=== PATIENT | male | born 1960 | race Caucasian/White ===

== ENCOUNTER 2016-07-14 10:54 | Observation (INO) | payer OTHER ==
[2016-07-14] MEDS ORDERED: ACETAMINOPHEN IV (For NPO) 1,000 MG in EMPTY BAG 1 BAG IVPB STA (11:18)
[2016-07-14] MEDS ORDERED: IPRATROPIUM 0.5 MG/2.5 ML NEBU INHALATION STA (11:18)
[2016-07-14] MEDS ORDERED: KETOROLAC 30 MG/ML 1 ML VIAL IVP STA (11:18)
[2016-07-14] MEDS ORDERED: ALBUTEROL NEBULIZED 2.5 MG/3 ML INHALATION STA (11:18)
[2016-07-14] MEDS ORDERED: SODIUM CHLORIDE 0.9% 1,000 ML IV STA ×2 (11:18)
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
[2016-07-14] MEDS ORDERED: ASPIRIN 81 MG CHEW PO STA (12:33)
[2016-07-14] MEDS ORDERED: NITROGLYCERIN SL TABS 0.4 MG TAB SUBLINGUAL PRN (12:33)
[2016-07-14 12:42] LABS: Basophils # (A) 0.1 k/uL (0-0.2); Basophils % (A) 1 %; CH 34.4; CHCM 33.9; Eosinophils # (A) 0.1 k/uL (0-0.7); Eosinophils % (A) 1 %; HCT 44.1 % (39.0-53.0); HDW 2.41; HGB 14.7 gm/dL (13.0-17.5); Luc # (Auto) 0.29; Luc % (Auto) 4; Lymphocytes # (A) 2.2 k/uL (1.0-4.8); Lymphocytes % (A) 29 %; MCH 33.9 pg (25.0-35.0); MCHC 33.3 g/dL (31.0-37.0); MCV 101.8 fL (80.0-100.0); Mean Platelet Volume 7.1; Monocytes # (A) 0.5 k/uL (0-1.0); Monocytes % (A) 7 %; Neutrophils # (A) 4.4 k/uL (1.3-7.7); Neutrophils % (A) 58 %; RBC 4.33 m/uL (4.30-5.90); RDW 12.5 % (11.5-15.5); WBC 7.6 k/uL (3.8-10.6); WBC (Perox) 7.68
[2016-07-14 12:43] LABS: INR 1.1 (<1.1); Partial Thromboplastin Time 25.2 sec (22.0-30.0); Prothrombin Time 10.9 sec (9.0-12.0)
[2016-07-14 12:45] LABS: ALT 104 U/L (21-72); AST 100 U/L (17-59); Alkaline Phosphatase 71 U/L (38-126); Anion Gap 11 mmol/L; Blood Urea Nitrogen 16 mg/dL (9-20); Carbon Dioxide 30 mmol/L (22-30); Chloride 102 mmol/L (98-107); Glucose 96 mg/dL (74-99); Magnesium 1.9 mg/dL (1.6-2.3); Non-African American GFR(MDRD) >60 (>60 ml/min/1.73 sqM); Phosphorous 4.4 mg/dL (2.5-4.5); Potassium 4.4 mmol/L (3.5-5.1); Sodium 143 mmol/L (137-145); Total Bilirubin 0.5 mg/dL (0.2-1.3); Total Protein 7.8 g/dL (6.3-8.2)
[2016-07-14 12:55] LABS: Creatine Kinase 51 U/L (55-170)
--- NOTE | 2016-07-14 12:58 | XR ---
EXAMINATION TYPE: XR chest 2V DATE OF EXAM: 07/14/2016 12:50 PM COMPARISON: 10/25/2015 HISTORY: Shortness of breath FINDINGS: The lungs are clear and there is no pneumothorax, pleural effusion, or focal pneumonia. Hypertrophi c and degenerative change of the spine. Postsurgical changes noted. Chronic rib deformities noted. Co rrelate for COPD. Arthropathy of the shoulders noted. IMPRESSION: 1. No acute process. Correlate for COPD.
[2016-07-14] MEDS: MORPHINE SULFATE 4 MG/ML SYRINGE IV PRN ×3 (13:01→22:31)
[2016-07-14 13:08] LABS: Creatine Kinase MB 1.4 ng/mL (0.0-2.4); Troponin I <0.012 ng/mL (0.000-0.034)
[2016-07-14] MEDS ORDERED: RX INFO: IV CONTRAST WAS GIVEN 1 EACH MISC MISCELLANE PRN (13:12)
[2016-07-14] MEDS ORDERED: HEPARIN SODIUM,PORCINE 5,000 UNIT/ML 1 ML VIAL IV ONE (13:15)
[2016-07-14] MEDS ORDERED: HEPARIN SODIUM,PORCINE/D5W PMX 25,000 UNIT in DEXTROSE/WATER 1 500ML.BAG IV SCH (13:15)
[2016-07-14] MEDS ORDERED: hydrALAZINE HCL 20 MG/ML 1 ML VIAL IVP STA (14:28)
--- NOTE | 2016-07-14 14:38 | CT ---
EXAMINATION TYPE: CT angio chest DATE OF EXAM: 07/14/2016 2:25 PM COMPARISON: 04/24/2016 HISTORY: Right sided chest pain wih shorhness of breath CT DLP: 147.4 mGycm CONTRAST: CT chest with contrast and 3D reconstruction with MIP imaging is performed with IV Contrast, patient injected with 100 mL of Omnipaque 350. Contrast-enhanced CT of the chest was performed through the course of the pulmonary arteries with rk g and mediastinal window settings submitted. 3D reconstruction with MIP imaging was also performed. PULMONARY ARTERIES: The pulmonary arteries and their major tributaries are patent. I do not see nuno dence for sizable filling defect to suggest pulmonary embolic process. LUNGS: Postoperative changes right lung. Emphysematous changes noted bilaterally. The lungs are clear and free of infiltrate. No evidence for atelectasis. No pulmonary nodule or mass is detected. No pleural effusion. MEDIASTINUM: Thoracic aorta is of normal caliber . The heart is not enlarged. No evidence for media stinal mass. No mediastinal lymph nodes greater than 1cm. HILAR STRUCTURES: No evidence for mass. No hilar lymph nodes greater than 1 cm. UPPER ABDOMEN: No significant abnormality is seen. IMPRESSION: 1. No evidence for Pulmonary embolism at this time.
[2016-07-14] MEDS: IPRATROPIUM-ALBUTEROL 3 ML NEB INHALATION SCH ×2 (15:57→20:35)
[2016-07-14 18:57] LABS: Troponin I 0.015 ng/mL (0.000-0.034)
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
[2016-07-14] MEDS ORDERED: IPRATROPIUM-ALBUTEROL 3 ML NEB INHALATION PRN (20:35)
[2016-07-14] MEDS: HEPARIN SODIUM,PORCINE 5,000 UNIT/ML 1 ML VIAL IV PRN (22:28)
[2016-07-15 01:19] LABS: Creatine Kinase 38 U/L (55-170)
[2016-07-15 01:32] LABS: Creatine Kinase MB 1.2 ng/mL (0.0-2.4); Troponin I <0.012 ng/mL (0.000-0.034)
[2016-07-15] MEDS: MORPHINE SULFATE 4 MG/ML SYRINGE IV PRN ×3 (01:43→10:00)
[2016-07-15 04:52] LABS: Basophils # (A) 0.2 k/uL (0-0.2); Basophils % (A) 2 %; CHCM 32.6; Eosinophils # (A) 0.1 k/uL (0-0.7); Eosinophils % (A) 2 %; HCT 40.1 % (39.0-53.0); HDW 2.36; HGB 12.9 gm/dL (13.0-17.5); Luc # (Auto) 0.27; Luc % (Auto) 4; Lymphocytes # (A) 2.5 k/uL (1.0-4.8); Lymphocytes % (A) 39 %; MCH 33.5 pg (25.0-35.0); MCHC 32.1 g/dL (31.0-37.0); MCV 104.5 fL (80.0-100.0); Macrocytosis Slight; Mean Platelet Volume 7.9; Monocytes # (A) 0.7 k/uL (0-1.0); Monocytes % (A) 11 %; Neutrophils # (A) 2.7 k/uL (1.3-7.7); Neutrophils % (A) 42 %; RBC 3.84 m/uL (4.30-5.90); RDW 12.7 % (11.5-15.5); WBC 6.4 k/uL (3.8-10.6); WBC (Perox) 6.16
[2016-07-15 04:56] LABS: Cholesterol 145 mg/dL (<200); HDL Cholesterol 72 mg/dL (40-60); Triglycerides 51 mg/dL (<150)
[2016-07-15] MEDS: HEPARIN SODIUM,PORCINE 5,000 UNIT/ML 1 ML VIAL IV PRN (05:11)
[2016-07-15 08:00] VITALS: RESP 18
[2016-07-15] MEDS ORDERED: ASPIRIN 325 MG TAB PO SCH (09:00)
--- NOTE | 2016-07-15 10:57 | CONS ---
DATE OF CONSULTATION: CHIEF COMPLAINT: Right-sided chest pain. HISTORY OF PRESENT ILLNESS: This is a 55-year-old gentleman with history of cancer of the lung, status post right middle lobectomy currently on adjuvant chemotherapy who presented to the hospital complaining of chest discomfort. He had pain and swelling of the right upper extremity and has had discomfort involving the right side. It is moderate in intensity without clear-cut relieving factor, got worse with deep breathing, not associated with diaphoresis. Had a CT chest that was negative for pulmonary embolism, has had 3 sets of cardiac enzymes that were negative. EKG shows sinus rhythm with nonspecific ST-T wave change, similar to his baseline EKG. I believe patient's chest discomfort is atypical and probably noncardiac in origin. Past medical history is significant for hepatitis C, hypertension, dyslipidemia, osteoarthritis, CA lung. Past surgical history is significant for right middle lobectomy, patient is on chemotherapy, tonsillectomy, hernia repair, adenoidectomy. ALLERGIES: As charted. FAMILY HISTORY: Negative for premature coronary artery disease. Social history is significant for smoking that he quit in 2009. He drinks vodka regularly and is currently at [place]. Social history is significant for marijuana use. REVIEW OF SYSTEMS: HEENT: Unremarkable. CARDIAC: As described above. RESPIRATORY: As described above. GI: Negative. GENITOURINARY: Negative. ALLERGY/IMMUNOLOGY: Negative. SKIN: Negative. MUSCULOSKELETAL: Significant for arthritis. PSYCHOSOCIAL: Negative. ENDOCRINE: Negative. DERM: Negative. CONSTITUTIONAL: Negative. ONCOLOGICAL: Significant for cancer. The rest of the system review is not relevant. On exam, he is comfortable at rest. Vital signs are stable. There is no jugular venous distention. Chest exam reveals diminished air entry at the right base. Heart exam reveals first and second heart sounds. No gallop. No murmur. Abdomen is soft, nontender. Examination of extremities did not reveal any edema. Peripheral pulses are felt. Labs show a hemoglobin of 12.9. Platelet count is 175. LDL is 63. Creatinine is normal at 0.9. Potassium is 4.4. Current medications include trazodone, Catapres, ibuprofen, magnesium and Tylenol. ASSESSMENT: 1. Chest pain. 2. History of cancer of lung. 3. History of EtOH abuse. PLAN: Patient's chest discomfort is atypical and probably noncardiac in origin. He is stable to be discharged home. Please arrange followup with Dr. Santacruz my associate who has seen him in the past. I will obtain a 2-D echo, but he is stable to be discharged.
--- NOTE | 2016-07-15 11:28 | ECHOF ---
Referral Reason:chest pain MEASUREMENTS -------- HEIGHT: 172.7 cm WEIGHT: 59.0 kg BP: 144/83 IVSd: 1.3 cm (0.6 - 1.1) LVIDd: 3.5 cm (3.9 - 5.3) LVPWd: 1.1 cm (0.6 - 1.1) IVSs: 1.7 cm LVIDs: 1.7 cm LVPWs: 2.0 cm MV EXCURSION: 23.254 mm (> 18.000) MV EF SLOPE: 140 mm/s (70 - 150) EPSS: 2.0 cm MV E Nikolai: 0.84 m/s MV DecT: 258 ms MV A Nikolai: 0.77 m/s MV E/A Ratio: 1.09 RAP: 5.00 mmHg RVSP: 9.27 mmHg FINDINGS -------- Sinus rhythm. This was a technically good study. There is mild concentric left ventricular hypertrophy. Overall left ventricular systolic function is normal with, an EF between 55 - 60 %. The right ventricle is normal in size and function. The left atrium is normal in size. The right atrium is normal in size. The aortic valve was not well visualized. The mitral valve leaflets are mildly thickened. There is trace mitral regurgitation. Mild tricuspid regurgitation present. The right ventricular systolic pressure, as measured by Doppler, is 9.27mmHg. Pulmonic valve appears structurally normal. The aortic root size is normal. The pericardium is normal. CONCLUSIONS -------- 1. Sinus rhythm. 2. There is trace mitral regurgitation. 3. Mild tricuspid regurgitation present. 4. The right ventricular systolic pressure, as measured by Doppler, is 9.27mmHg. 5. Pulmonic valve appears structurally normal. 6. The aortic root size is normal. 7. The pericardium is normal. 8. This was a technically good study. 9. There is mild concentric left ventricular hypertrophy. 10. Overall left ventricular systolic function is normal with, an EF between 55 - 60 %. 11. The right ventricle is normal in size and function. 12. The left atrium is normal in size. 13. The right atrium is normal in size. 14. The aortic valve was not well visualized. 15. The mitral valve leaflets are mildly thickened. OPERATIONS INTELLIGENCE: Annamarie Saravia [facility]
[2016-07-15 12:09] VITALS: BP 167/79; PULSE 71; TEMP 98.6
--- NOTE | 2016-07-17 12:37 | P.DS ---
Providers Date of admission: 07/14/16 12:33 Expected date of discharge: 07/15/16 Attending physician: Alvarez Avila Consults: 07/14/16 16:39 Consult Physician Routine Consulting Provider: [facility] Consult Reason/Comments: CP Do you want consulting provider notified?: Yes Primary care physician: Shaun Metzger [facility] Course: This is a 55-year-old male one of Dr. 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 followed by adjuvant chemotherapy in the form of Taxol and carboplatin 1 after which she had suffered from severe pain and swelling of the upper extremity and he has not received any other chemotherapy after that, he has been under the care of hematology oncology, patient also has a history of hepatitis C for which she did receive some treatment for it, patient was recently admitted at [place] for chronic alcohol use and dependence with the intention of staying sober as he started to drink up to fifth a day, patient was sent from [place] because of right-sided chest pain that started while the patient was they're associated with increased shortness breath he patient was seen and evaluated in the emergency department at [facility] had a computed tomography scan of the chest that was negative for pulmonary embolism and the patient was admitted to the hospital for evaluation was placed on heparin drip because of his other comorbidities. Cardiology consultation was obtained prior to his clearance to go back to [place]. Echocardiogram reveals trace mitral regurgitation, mild tricuspid regurgitation , mild concentric left ventricular hypertrophy, EF 55-60%. He has been evaluated by cardiology, Dr. Zeng, and has been cleared for discharge. Discharge diagnoses: 1. Right-sided chest pain. 2. Poorly differentiated large cell lung cancer. Post right middle lobectomy with the adjuvant chemotherapy 1 in the form of carboplatin and Taxol currently in remission. 3. Chronic hepatitis C posttreatment. 4. Chronic alcohol use and dependence. 5. Chronic marijuana use. Observation. Discharge plan: Back to [place] if cleared by cardiology. Impression and plan of care have been directed as dictated by the signing physician. Tess Morales nurse practitioner acting as scribe for signing physician. Cc: Dr. Shaun Metzger Patient Condition at Discharge: Good Plan - Discharge Summary Discharge Medication List Acetaminophen [Tylenol Arthritis] 650 mg PO Q4H PRN 07/14/16 [History] Calcium/Magnesium 2 tab PO TID PRN 07/14/16 [History] Chlorpheniramine Maleate [Chlor-Trimeton] 4 mg PO Q4H PRN 07/14/16 [History] Ibuprofen [Motrin] 600 mg PO Q6HR PRN 07/14/16 [History] cloNIDine HCL [Catapres] 0.1 - 0.3 mg PO Q4H PRN 07/14/16 [History] traZODone HCL 50 - 150 mg PO HS 07/14/16 [History] Follow up Appointment(s)/Referral(s): Shaun Metzger MD [Primary Care Provider] - 1-2 days Dg Santacruz MD [STAFF PHYSICIAN] - 3 Weeks Patient Instructions/Handouts: Chest Pain (GEN) Activity/Diet/Wound Care/Special Instructions: low fat/low salt diet activity as tolerated Discharge Disposition: HOME SELF-CARE
--- NOTE | 2016-09-12 17:41 | CDI ---
Sarahy Segura Would you please provide clarification for your EC diagnosis of COPD exacerbation. I have not been able to find supporting documentation for this diagnosis. Thank you Miguel Rivero/Keily [facility]
--- NOTE | 2016-09-12 17:45 | CDI ---
Saarhy Segura Would you please clarify your EC diagnosis of Acute exacerbation of COPD. I have not been able to find supporting documentation for this diagnosis. Thank you Miguel Rivero/Ke[facility]
--- NOTE | 2016-09-18 13:04 | CDI ---
Dr. Segura, Please clarify the EC diagnosis of acute exacerbation of chronic obstructive pulmonary disease. I have not found documentation to support this diagnosis. Updated Exam Thank you, Valencia Rivero 09-18-16 [facility]
== END 2016-07-15 13:30 | disposition home or self-care (01) ==
LOC: EC 10:54 → 3OBS 12:33
PROVIDERS: ADMIT Internal Medicine; ATTEND Internal Medicine
DX: R07.89 Other chest pain (principal); C34.90 Malignant neoplasm of unspecified part of unspecified bronchus or lung; B18.2 Chronic viral hepatitis C; F10.20 Alcohol dependence, uncomplicated; F12.90 Cannabis use, unspecified, uncomplicated; I10 Essential (primary) hypertension; J44.1 Chronic obstructive pulmonary disease with (acute) exacerbation; Z87.891 Personal history of nicotine dependence; Z90.2 Acquired absence of lung [part of]; Z79.899 Other long term (current) drug therapy; M19.90 Unspecified osteoarthritis, unspecified site
CPT/HCPCS: 96361 ×3; 96376 ×4; 96365 ×2; 96375 ×2; 99291 ×2; 93005 ×2; 96366 ×2; 36415; 94640 ×2; 94644; 93306; 83880; 80061; 80053; 82550 ×2; 82553 ×2; 83735; 84100; 84484 ×2; 85025 ×2; 85610; 85730 ×2; 71020; 71275; G0378 ×2; J2270 ×2; J0360; J1644 ×3; Q9967; J1885; J0131

== ENCOUNTER 2016-11-18 18:36 | Observation (INO) | payer OTHER ==
[2016-11-18] MEDS: NITROGLYCERIN SL TABS 0.4 MG TAB SUBLINGUAL STA ×3 (19:21→19:32)
[2016-11-18 19:30] LABS: Basophils % (A) 1 %; CH 34.7; CHCM 34.7; Eosinophils % (A) 1 %; HDW 2.33; HGB 14.3 gm/dL (13.0-17.5); Luc # (Auto) 0.19; Luc % (Auto) 4; Lymphocytes # (A) 2.1 k/uL (1.0-4.8); Lymphocytes % (A) 46 %; MCHC 33.9 g/dL (31.0-37.0); MCV 100.2 fL (80.0-100.0); Mean Platelet Volume 6.8; Monocytes # (A) 0.2 k/uL (0-1.0); Monocytes % (A) 5 %; Neutrophils # (A) 2.1 k/uL (1.3-7.7); Neutrophils % (A) 44 %; RBC 4.19 m/uL (4.30-5.90); RDW 13.8 % (11.5-15.5); WBC 4.7 k/uL (3.8-10.6); WBC (Perox) 4.46
--- NOTE | 2016-11-18 19:32 | XR ---
EXAMINATION TYPE: XR chest 1V portable DATE OF EXAM: 11/18/2016 COMPARISON: Chest x-ray and CTA chest July 14, 2016. HISTORY: History of lung cancer presents with chest pain. TECHNIQUE: Single AP portable frontal upright view of the chest is obtained. FINDINGS: There are right hilar clips from partial pneumonectomy with right-sided volume loss and ri ght basilar scarring all redemonstrated. Underlying emphysematous change is redemonstrated. No new hayes spicious focal airspace opacity or pneumothorax is seen bilaterally. The cardiac silhouette size is within normal limits. The osseous structures are intact. IMPRESSION: Chronic changes without acute pulmonary process.
[2016-11-18 19:44] LABS: Appearance,Urine Clear (Clear); Bilirubin,Urine Negative (Negative); Glucose,Urine (UA) Negative (Negative); Ketones,Urine Negative (Negative); Leukocyte Esterase,Urine Negative (Negative); Mucus,Urine Rare /hpf; Nitrite,Urine Negative (Negative); PH, Urine 6.5 (5.0-8.0); Particle Count 3735; Protein,Urine 2+ (Negative); RBC,Urine 1 /hpf (0-5); Specific Gravity,Urine 1.018 (1.001-1.035); UA Billing (MACRO vs. MICRO) MICRO
[2016-11-18 19:50] LABS: Prothrombin Time 10.6 sec (9.0-12.0)
[2016-11-18 19:59] LABS: ALT 78 U/L (21-72); AST 173 U/L (17-59); Alkaline Phosphatase 86 U/L (38-126); Amylase 143 U/L (30-110); Anion Gap 15 mmol/L; Blood Urea Nitrogen 13 mg/dL (9-20); Calcium 8.6 mg/dL (8.4-10.2); Carbon Dioxide 30 mmol/L (22-30); Chloride 103 mmol/L (98-107); Glucose 93 mg/dL (74-99); Magnesium 1.7 mg/dL (1.6-2.3); Non-African American GFR(MDRD) >60 (>60 ml/min/1.73 sqM); Potassium 3.8 mmol/L (3.5-5.1); Sodium 148 mmol/L (137-145); Total Bilirubin 1.2 mg/dL (0.2-1.3); Total Protein 8.2 g/dL (6.3-8.2)
[2016-11-18 20:08] LABS: Alcohol 394 mg/dL
[2016-11-18] MEDS ORDERED: RX INFO: IV CONTRAST WAS GIVEN 1 EACH MISC MISCELLANE PRN (21:44)
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
[2016-11-18] MEDS ORDERED: NITROGLYCERIN SL TABS 0.4 MG TAB SUBLINGUAL PRN (22:08)
[2016-11-18] MEDS ORDERED: MORPHINE SULFATE 4 MG/ML SYRINGE IV PRN (22:08)
[2016-11-18] MEDS ORDERED: HEPARIN SODIUM,PORCINE 5,000 UNIT/ML 1 ML VIAL IV ONE (22:08)
[2016-11-18] MEDS ORDERED: THIAMINE 100 MG/ML 2 ML VIAL IM STA (22:13)
[2016-11-18] MEDS ORDERED: LORazepam 2 MG/ML SYRINGE IV PRN ×2 (22:13)
[2016-11-18] MEDS ORDERED: HEPARIN SODIUM,PORCINE/D5W PMX 25,000 UNIT in DEXTROSE/WATER 1 500ML.BAG IV SCH (22:15)
[2016-11-18] MEDS ORDERED: ENOXAPARIN 60 MG/0.6 ML SYRINGE SQ STA (22:17)
--- NOTE | 2016-11-18 22:20 | CT ---
EXAMINATION TYPE: CT chest angio for PE DATE OF EXAM: 11/18/2016 COMPARISON: CTA chest July 14, 2016. HISTORY: History of lung cancer and surgery with chest pain and elevated d-dimer. CT DLP: 596 mGycm. Automated Exposure Control for Dose Reduction was Utilized. CONTRAST: CTA scan of the thorax is performed with IV Contrast, patient injected with 85 mL of Omnipaque 350, p ulmonary embolism protocol. MIP Images are created on CT scanner and reviewed. FINDINGS: LUNGS: Moderate underlying emphysematous change is redemonstrated. Right hilar surgical sutures and c lips with right-sided volume loss is again seen from partial pneumonectomy. There is right basilar li near scarring. There is no suspicious new focal groundglass opacity or consolidation. No concerning n ew parenchymal nodule or mass is present. No pleural effusion or pneumothorax is seen bilaterally. MEDIASTINUM: There is satisfactory enhancement of the pulmonary artery and its branches, there is no CT evidence for pulmonary embolism. There are no greater than 1 cm hilar or mediastinal lymph nodes. No cardiomegaly or pericardial effusion is seen. There is 4 vessel origin from aortic arch which i s normal variant. Coronary artery calcification and left main is present which is noted marker for co ronary artery disease. Mediastinal shift to the right is present. OTHER: Liver is markedly low dense consistent with fatty infiltration. Multilevel spurring in the spi ne is present. IMPRESSION: No CT evidence for pulmonary embolism. Moderate emphysematous change and postsurgical dilia nge right lung without suspicious acute pulmonary process. No significant change from prior CT.
[2016-11-18] MEDS: LORazepam 2 MG/ML SYRINGE IV PRN (23:16)
[2016-11-19 01:45] LABS: Creatine Kinase 654 U/L (55-170)
[2016-11-19] MEDS: THIAMINE 100 MG TAB PO SCH ×2 (01:47→12:03)
[2016-11-19 01:58] LABS: Troponin I <0.012 ng/mL (0.000-0.034)
[2016-11-19 02:00] LABS: Creatine Kinase MB 5.1 ng/mL (0.0-2.4)
[2016-11-19] MEDS: LORazepam 2 MG/ML SYRINGE IV PRN ×2 (03:13→12:06)
[2016-11-19 07:56] VITALS: RESP 16
[2016-11-19 08:19] LABS: Cholesterol 247 mg/dL (<200); Triglycerides 139 mg/dL (<150)
[2016-11-19 08:35] LABS: Creatine Kinase 561 U/L (55-170)
[2016-11-19 08:48] LABS: Troponin I <0.012 ng/mL (0.000-0.034)
[2016-11-19] MEDS ORDERED: ASPIRIN 325 MG TAB PO SCH (09:00)
[2016-11-19] MEDS ORDERED: ENOXAPARIN 60 MG/0.6 ML SYRINGE SQ SCH (09:00)
[2016-11-19 09:02] LABS: HDL Cholesterol 128 mg/dL (40-60)
[2016-11-19] MEDS ORDERED: METOPROLOL TARTRATE 25 MG TAB PO SCH (10:30)
[2016-11-19] MEDS ORDERED: POTASSIUM CHLORIDE ER 20 MEQ TAB.ER PO SCH (10:30)
[2016-11-19 11:59] VITALS: BP 158/89; PULSE 92; TEMP 98
--- NOTE | 2016-11-19 16:43 | CONS ---
DATE OF CONSULTATION: 56-year-old gentleman with lung cancer and right middle lobectomy, chemotherapy and I am not sure of radiation and comes into the hospital with chest pain. He is intoxicated, has alcohol level that is significant apparently. After arrival, he complained of chest discomfort. The quality of pain is atypical. There is tenderness on the chest wall. Troponins are normal. D-dimer was elevated. CT angiogram negative for pulmonary embolism. Resting comfortably, still intoxicated. Gives history in bits and pieces. Quality of pain is atypical. PAST MEDICAL HISTORY: 1. History of lung cancer, status post right middle lobectomy followed by some chemotherapy. 2. He is also has hypertension. 3. Liver disease. 4. History of alcoholism, chronic and acute intoxication at this time. Medications at home include: 1. Acetaminophen. 2. Ibuprofen. 3. Catapres 0.1 mg b.i.d. ALLERGIES: None. On examination, blood pressure is 140/80, pulse rate is 90 per minute. HEENT: Unremarkable. Fundus was not examined by me. Neck is supple. No JVD. I do not hear a carotid bruit. Heart exam reveals S1 and S2 without significant rub, murmur or gallop. Lungs reveal diminished air entry. ABDOMEN: Soft. Lower extremities reveal diminished pulses. Central nervous system is normal. Laboratory data revealed unremarkable troponins. IMPRESSION: 1. Atypical musculoskeletal chest pain. 2. History of lung carcinoma, status post right middle lobectomy and chemotherapy. 3. Acute alcohol intoxication. 4. History of chronic alcoholism. 5. History of previous echo which revealed normal systolic function. RECOMMENDATIONS: I am recommending that we supplement potassium, add a beta madi, switch him from Lovenox to subcu heparin 5000 q.12 hours, increase activity, and discharge when sober. Follow up with Dr. Santacruz who has seen him in the past.
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
[2016-11-20] MEDS ORDERED: HEPARIN SODIUM,PORCINE 5,000 UNIT/ML 1 ML VIAL SQ SCH (09:00)
== END 2016-11-19 14:58 | disposition home or self-care (01) ==
LOC: EC 18:36 → 3OBS 22:30
PROVIDERS: ADMIT Internal Medicine; ATTEND Internal Medicine
DX: R07.89 Other chest pain (principal); J44.9 Chronic obstructive pulmonary disease, unspecified; Z87.891 Personal history of nicotine dependence; F10.229 Alcohol dependence with intoxication, unspecified; Y90.8 Blood alcohol level of 240 mg/100 ml or more; I25.10 Atherosclerotic heart disease of native coronary artery without angina pectoris; Z85.118 Personal history of other malignant neoplasm of bronchus and lung; Z79.899 Other long term (current) drug therapy; Z92.21 Personal history of antineoplastic chemotherapy; R79.89 Other specified abnormal findings of blood chemistry; H54.42 Blindness, left eye, normal vision right eye
CPT/HCPCS: 96372 ×4; 93005 ×2; 96374; 96375; 96376; 99285; 36415; 85379; 80061; 80053; 82150; 82550; 82553; 83690; 83735; 84484 ×2; 85025; 85610; 85730; 81001; 80320; 71010; 71275; G0378 ×2; J2060 ×2; J2270; J3411; Q9967; J1650 ×2

== ENCOUNTER 2016-11-19 23:17 | Observation (INO) | payer OTHER ==
[2016-11-19] MEDS ORDERED: SODIUM CHLORIDE 0.9% 1,000 ML with MVI, ADULT NO.4 WITH VIT K 10 ML, THIAMINE 100 MG, F... IV ONE ×4 (23:53)
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
[2016-11-20 00:24] LABS: Basophils % (A) 1 %; CH 34.8; CHCM 33.9; Eosinophils # (A) 0.1 k/uL (0-0.7); Eosinophils % (A) 1 %; HCT 41.7 % (39.0-53.0); HGB 13.6 gm/dL (13.0-17.5); Luc % (Auto) 2; Lymphocytes # (A) 1.8 k/uL (1.0-4.8); Lymphocytes % (A) 34 %; MCH 33.7 pg (25.0-35.0); MCHC 32.6 g/dL (31.0-37.0); MCV 103.2 fL (80.0-100.0); Macrocytosis Slight; Mean Platelet Volume 7.4; Monocytes # (A) 0.3 k/uL (0-1.0); Monocytes % (A) 5 %; Neutrophils % (A) 57 %; RBC 4.04 m/uL (4.30-5.90); RDW 13.6 % (11.5-15.5); WBC 5.3 k/uL (3.8-10.6); WBC (Perox) 4.93
[2016-11-20 00:36] LABS: Prothrombin Time 10.6 sec (9.0-12.0)
[2016-11-20 00:38] LABS: ALT 77 U/L (21-72); AST 131 U/L (17-59); Alkaline Phosphatase 82 U/L (38-126); Amylase 107 U/L (30-110); Anion Gap 18 mmol/L; Blood Urea Nitrogen 13 mg/dL (9-20); Calcium 9.5 mg/dL (8.4-10.2); Carbon Dioxide 25 mmol/L (22-30); Chloride 102 mmol/L (98-107); Glucose 144 mg/dL (74-99); Non-African American GFR(MDRD) >60 (>60 ml/min/1.73 sqM); Potassium 3.3 mmol/L (3.5-5.1); Sodium 145 mmol/L (137-145); Total Bilirubin 1.3 mg/dL (0.2-1.3)
[2016-11-20] MEDS ORDERED: LIDOCAINE VISCOUS 2% 15 ML CUP TOPICAL ONE (01:03)
--- NOTE | 2016-11-20 01:04 | CT ---
EXAM: CT Head Without Intravenous Contrast CLINICAL HISTORY: Reason: alcoholic, fall TECHNIQUE: Axial computed tomography images of the head/brain without intravenous contrast. CTDI is 57.4 mGy and DLP is 1167.7 mGy-cm. This CT exam was performed using one or more of the following dose reduction techniques: automated exposure control, adjustment of the mA and/or kV according to patient size, and/or use of iterative reconstruction technique. Coronal and sagittal reformatted images were created and reviewed. COMPARISON: No relevant prior studies available. FINDINGS: Brain: Mild chronic small vessel ischemic changes. Incidental veto simeon space seen within the right innominate region. Global volume loss. No hemorrhage. No significant white matter disease. No edema. Ventricles: Unremarkable. No ventriculomegaly. Bones/joints: Unremarkable. No acute fracture. Soft tissues: Unremarkable. Sinuses: Unremarkable as visualized. No acute sinusitis. Mastoid air cells: Unremarkable as visualized. No mastoid effusion. IMPRESSION: No acute intracranial abnormality. EXAM: CT Cervical Spine Without Intravenous Contrast CLINICAL HISTORY: Reason: alcoholic, fall TECHNIQUE: Axial computed tomography images of the cervical spine without intravenous contrast. CTDI is 15.1 mGy and DLP is 364.1 mGy-cm. This CT exam was performed using one or more of the following dose reduction techniques: automated exposure control, adjustment of the mA and/or kV according to patient size, and/or use of iterative reconstruction technique. Coronal and sagittal reformatted images were created and reviewed. COMPARISON: No relevant prior studies available. FINDINGS: Vertebrae: Unremarkable. No acute fracture. Discs/spinal canal/neural foramina: Prominent disc osteophyte complexes seen at C3/C4, C4/C5 and C6/C7. Central stenosis seen at C6/C7. Bilateral left worse than right neuroforaminal stenosis at C2/23. Left neuroforaminal stenosis at C3/C4. Bilateral neuroforaminal stenosis at C4/C5. Bilateral neuroforaminal stenosis C5/C6. Bilateral neuroforaminal stenosis at C6/C7. Right neuroforaminal stenosis at C7/T1. The extensive facet disease is seen predominantly on the left throughout the cervical spine. Soft tissues: Unremarkable. Lung apices: Extensive paraseptal emphysematous changes of the left lung. IMPRESSION: No acute findings. Cervical spondylosis as described.
--- NOTE | 2016-11-20 01:18 | XR ---
EXAM: XR Left Knee, 4 views CLINICAL HISTORY: Reason: Pain TECHNIQUE: Four views of the left knee. COMPARISON: No relevant prior studies available. FINDINGS: Bones/joints: Prominent enthesopathy seen in the region of the patella. No acute fracture. No dislocation. Soft tissues: Unremarkable. Vascular: Vascular calcifications seen. IMPRESSION: No acute findings.
--- NOTE | 2016-11-20 01:20 | XR ---
EXAM: XR Left Shoulder Complete, 3 Views CLINICAL HISTORY: Reason: Pain TECHNIQUE: Three views of the left shoulder. COMPARISON: No relevant prior studies available. FINDINGS: Bones/joints: Degenerative changes of the AC joint. No acute fracture. No dislocation. Old left rib fracture. Soft tissues: Unremarkable. IMPRESSION: No acute findings. Old left rib fracture.
--- NOTE | 2016-11-20 01:23 | XR ---
EXAM: XR Chest, 2 Views CLINICAL HISTORY: Reason: cough, history large cell carcinoma right side. TECHNIQUE: Frontal and lateral views of the chest. COMPARISON: CXR 11/18/16 FINDINGS: Lungs: Scarring once again seen within the right lung base. Evidence of previous partial pneumonectomy on the right. Emphysematous changes. No acute infiltrate. Pleural space: Unremarkable. No pneumothorax. Heart: Unremarkable. No cardiomegaly. Mediastinum: Unremarkable. Bones/joints: Unremarkable. Old left seventh rib fracture. Old right ninth rib fracture. IMPRESSION: No acute findings. Scarring once again seen within the right lung base. Evidence of previous partial pneumonectomy on the right. Emphysematous changes.
[2016-11-20] MEDS ORDERED: LORazepam 2 MG/ML SYRINGE IV PRN ×3 (01:39)
[2016-11-20] MEDS ORDERED: NALOXONE 0.4 MG/ML 1 ML VIAL IV PRN (01:40)
[2016-11-20] MEDS: IBUPROFEN 400 MG TAB PO PRN ×3 (03:32→14:33)
[2016-11-20] MEDS ORDERED: Potassium Replacement Protocol 1 EACH MISC MISCELLANE PRN (05:07)
[2016-11-20] MEDS: POTASSIUM CHLORIDE ER 20 MEQ TAB.ER PO SCH ×2 (05:44→06:56)
[2016-11-20 07:11] VITALS: RESP 14
[2016-11-20] MEDS ORDERED: PANTOPRAZOLE 40 MG/10 ML VIAL IV SCH (09:00)
[2016-11-20] MEDS ORDERED: METOPROLOL TARTRATE 25 MG TAB PO SCH (09:00)
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
--- NOTE | 2016-11-20 10:07 | XR ---
Left hip HISTORY: Left hip pain 2 views of the left hip No comparisons There is a prominence noted along the femoral neck. Mild marginal spurring is present. Alignment and bone mineralization are maintained. Calcification present near the greater trochanter as at the lesse r trochanter could be indicative of calcific tendinitis. No fracture or dislocation. IMPRESSION: Findings suggestive of osteoarthritis, consider femoral acetabular impingement, additiona l findings above.
[2016-11-20 11:36] VITALS: BMI 18.2
[2016-11-20] MEDS ORDERED: ACETAMINOPHEN TAB 325 MG TAB PO PRN (12:41)
[2016-11-20] MEDS ORDERED: BACITRACIN 500 UNIT/GM OINT 28.4 GM TUBE TOPICAL SCH (13:30)
--- NOTE | 2016-11-20 14:00 | P.CN ---
Psychiatric Consult - . Consult date: 11/20/16 Consult:: 11/20/16 13:49DATE OF SERVICE: 11/20/2016[] IDENTIFYING DATA: This patient is a 56-year-old male admitted to the medical floor after falling down while intoxicated. Consulted by emergency room physician for patient's history of alcohol abuse. HISTORY OF PRESENT ILLNESS: The patient presents sitting up in bed, lunch tray at bedside. Pleasant responded to name. States he made a mistake going to some friends drinking too much then falling/tripping over a curb with abrasions to his knee. States I have to stop drinking or my will leave me. Patient states that he went for approximately 8 months without drinking after he was diagnosed with lung cancer, "it's scared me to " states that he began to drink approximately 4 months ago. Prior to stopping he was drinking at a fifth a day now he's been drinking half a pint to a pint daily. States he did go to [facility] but was medically discharge, having chest pain. No longer having chest pain and states he has decided he is going to stop drinking, will begin going to AA, said he used to go there. And he also has a counselor he sees once a week at [facility]. Patient denies feeling depressed, anxious, or suicidal.. PAST PSYCHIATRIC HISTORY: Patient denies psychiatric hospitalizations, denies suicidal attempts, denies taking psychiatric meds, however he does take trazodone for sleep.. PAST MEDICAL HISTORY: Patient diagnosed with lung CVA, large cell, has been treated.. ALLERGIES: [No known drug allergies]. CHEMICAL DEPENDENCY HISTORY: Patient reports he began drinking early as a teenager, has continued to drink most of his life until he was diagnosed with lung cancer and that scared him so he stopped. He restarted drinking approximately 4 months ago. Now drinking a half pint to a pint daily. Denies other drugs of abuse however it is noted on his chart that he uses marijuana.. FAMILY PSYCHIATRIC HISTORY: Patient denies family history of mental illness. FAMILY CHEMICAL DEPENDENCY HISTORY: Patient reports he has a brother who uses heroin they have no contact, has one sister who uses alcohol, and another sister who does not drink or use drugs.. LEGAL HISTORY: Denied. SOCIAL HISTORY: States that he's been for 3 years but together with his for 14, he does not want her to leave him so he is motivated to stop drinking. He is unemployed he is on SSI due to the lung cancer.. MENTAL STATUS EXAM: Patient alert and oriented 3, good eye contact, fair groomed in hospital attire. Speech normal volume, rate and production. Coherent, logical and goal directed thought process. No KLAUS, no FOI. [No TB/TW/ TI] Denied auditory and visual hallucinations. Denied paranoid ideation, delusions or IOR. Memory intact Cognition below average Recalled 3 out of 3 at 0 minutes, 2 out of 3 at 5 minutes; Serial 7's unable to complete past 93 was able to subtract 3 from 20 correctly Mood euthymic, affect full range normal intensity, congruent with mood. Denies suicidal ideation, denies homicidal ideation. Insight partial; Judgment grossly intact for treatment purposes . IMPRESSIONS: 56-year-old male admitted after becoming intoxicated and falling over street curb. Patient has no past psychiatric history. No history of psychiatric hospitalizations. No history of suicidal ideation no history of current suicidal ideation, and no history of suicide attempts. No history of affect of disorder (depression, anxiety, radha, hypomania). No history of psychotic symptoms. Alcohol intoxication Alcohol use, severe (alcohol dependence) PLAN: [Patient has no indication for psychiatric inpatient, no indication for psychiatric outpatient treatment. He has a counselor he sees weekly for his alcohol use, recommended he restart going to AA. No further psychiatric follow-up.
[2016-11-20 14:52] VITALS: BP 131/75; PULSE 71; TEMP 98.6
[2016-11-20] MEDS ORDERED: DIPH,PERTUS(ACELL)TETVAC-LF 0.5 ML VIAL IM ONE (14:59)
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
[2016-11-21] MEDS ORDERED: PANTOPRAZOLE 40 MG TABLET PO SCH (07:30)
[2016-11-21] MEDS ORDERED: THIAMINE 100 MG TAB PO SCH (12:00)
[2016-11-21] MEDS ORDERED: MULTIVITAMINS, THERA 1 EACH TAB PO SCH (12:00)
== END 2016-11-20 17:00 | disposition home or self-care (01) ==
LOC: EC 23:17 → INTOOBSV 11-20 01:40 → 4MS4W 11-20 01:40
PROVIDERS: ADMIT Family Medicine; ATTEND Family Medicine
DX: F10.229 Alcohol dependence with intoxication, unspecified (principal); R07.89 Other chest pain; M47.9 Spondylosis, unspecified; J44.9 Chronic obstructive pulmonary disease, unspecified; F10.239 Alcohol dependence with withdrawal, unspecified; I25.10 Atherosclerotic heart disease of native coronary artery without angina pectoris; M25.552 Pain in left hip; Z85.118 Personal history of other malignant neoplasm of bronchus and lung; S70.02XA Contusion of left hip, initial encounter; S80.02XA Contusion of left knee, initial encounter; S80.212A Abrasion, left knee, initial encounter; I10 Essential (primary) hypertension; E78.5 Hyperlipidemia, unspecified; Z23 Encounter for immunization; H54.42 Blindness, left eye, normal vision right eye; F41.9 Anxiety disorder, unspecified; F32.9 Major depressive disorder, single episode, unspecified; K76.9 Liver disease, unspecified; Y90.8 Blood alcohol level of 240 mg/100 ml or more; M19.91 Primary osteoarthritis, unspecified site; Z90.2 Acquired absence of lung [part of]; Z92.21 Personal history of antineoplastic chemotherapy; Z87.891 Personal history of nicotine dependence; Z79.82 Long term (current) use of aspirin; Z79.899 Other long term (current) drug therapy; W19.XXXA Unspecified fall, initial encounter; Z82.0 Family history of epilepsy and other diseases of the nervous system; F12.90 Cannabis use, unspecified, uncomplicated; Y92.009 Unspecified place in unspecified non-institutional (private) residence as the place of occurrence of the external cause
CPT/HCPCS: 90471; 96366; 96365; 99285; 36415; 80053; 82150; 83690; 84132; 85025; 85610; 71020; 73030; 73502; 73564; 72125; 70450; 90715; G0378; J2060; J3411; C9113

== ENCOUNTER 2016-12-05 13:39 | Emergency (ER) | payer OTHER ==
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
[2016-12-05 14:58] VITALS: BP 141/82; PULSE 80; RESP 14; TEMP 97.9
== END 2016-12-05 15:06 | disposition home or self-care (01) ==
LOC: EC 13:39
DX: S61.411A Laceration without foreign body of right hand, initial encounter (principal); Z87.891 Personal history of nicotine dependence; Z79.899 Other long term (current) drug therapy; W26.9XXA Contact with unspecified sharp object(s), initial encounter; Y93.89 Activity, other specified
CPT/HCPCS: 12001; 99283

== ENCOUNTER → 2016-12-30 | Outpatient (CLI) | payer OTHER | END | disposition home or self-care (01) | LOC: RADPETMAIN 13:08 | PROVIDERS: ATTEND Internal Medicine | DX: Z53.9 Procedure and treatment not carried out, unspecified reason (principal) ==

== ENCOUNTER → 2017-01-06 | Outpatient (CLI) | payer OTHER ==
--- NOTE | 2017-01-08 09:35 | PE ---
Nuclear medicine PET/CT HISTORY: Lung cancer, abnormal findings, C 34.90, R 93.8 Patient received 14.5 mCi F-18 FDG intravenously delayed scanning was performed from the skull base t o the mid thighs. Localization and attenuation correction CT scan was also performed. Exam is correla tex to CT of the chest dated 11/18/2016 Head and neck: There is no evident adenopathy. No significant hypermetabolic uptake is noted. CHEST: Coronary artery calcifications are present. 2 right-sided rib fractures at the seventh and eig hth ribs show associated hypermetabolic uptake. No mediastinal, axillary, or hilar adenopathy. Postop changes are present. Emphysematous changes are present within the lungs. Abdomen pelvis: No evident adrenal mass. No liver mass on this noncontrast exam. No retroperitoneal a denopathy. No significant hypermetabolic uptake. Nonobstructive renal calculus present at the upper p ole on the left. Uptake within the colon felt likely to be physiologic. If bowel surveillance has not been performed and should be considered. Osseous structures: Facet arthropathy, degenerative disc changes in the visualized spine. There is a focus of activity lateral to the scapula on the left, SUV value is 3.5. IMPRESSION: Uptake adjacent to the scapula may be muscular. No definite associated soft tissue mass. Right-sided rib fractures. Postop changes. Additional findings above.
== END | disposition home or self-care (01) ==
LOC: RADPETMAIN 07:39
PROVIDERS: ATTEND Internal Medicine
DX: S22.41XA Multiple fractures of ribs, right side, initial encounter for closed fracture (principal); C34.90 Malignant neoplasm of unspecified part of unspecified bronchus or lung; R93.8 Abnormal findings on diagnostic imaging of other specified body structures; Z98.890 Other specified postprocedural states
CPT/HCPCS: 78815; A9552

== ENCOUNTER 2017-02-20 16:20 | Observation (INO) | payer OTHER ==
[2017-02-20] MEDS ORDERED: SODIUM CHLORIDE 0.9% 1,000 ML IV STA (17:13)
[2017-02-20] MEDS ORDERED: SODIUM CHLORIDE 0.9% 1,000 ML with MVI, ADULT NO.4 WITH VIT K 10 ML, THIAMINE 100 MG, F... IV ONE ×4 (17:14)
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
[2017-02-20 17:41] LABS: Basophils % (A) 0 %; CH 34.2; CHCM 34.3; Eosinophils % (A) 1 %; HCT 38.4 % (39.0-53.0); HDW 2.36; Luc # (Auto) 0.17; Luc % (Auto) 2; Lymphocytes # (A) 2.3 k/uL (1.0-4.8); Lymphocytes % (A) 29 %; MCH 33.9 pg (25.0-35.0); MCHC 33.9 g/dL (31.0-37.0); Macrocytosis Slight; Mean Platelet Volume 7.8; Monocytes # (A) 0.4 k/uL (0-1.0); Monocytes % (A) 5 %; Neutrophils # (A) 5.2 k/uL (1.3-7.7); Neutrophils % (A) 63 %; RBC 3.84 m/uL (4.30-5.90); RDW 14.5 % (11.5-15.5); WBC 8.2 k/uL (3.8-10.6); WBC (Perox) 8.31
[2017-02-20 18:01] LABS: ALT 42 U/L (21-72); AST 74 U/L (17-59); Alkaline Phosphatase 78 U/L (38-126); Amylase 120 U/L (30-110); Anion Gap 17 mmol/L; Blood Urea Nitrogen 15 mg/dL (9-20); Calcium 8.4 mg/dL (8.4-10.2); Carbon Dioxide 24 mmol/L (22-30); Chloride 103 mmol/L (98-107); Glucose 193 mg/dL (74-99); Magnesium 1.6 mg/dL (1.6-2.3); Non-African American GFR(MDRD) >60 (>60 ml/min/1.73 sqM); Sodium 144 mmol/L (137-145); Total Bilirubin 0.8 mg/dL (0.2-1.3); Total Protein 7.6 g/dL (6.3-8.2)
[2017-02-20 18:02] LABS: Potassium 3.8 mmol/L (3.5-5.1)
[2017-02-20 18:05] LABS: Creatine Kinase 275 U/L (55-170)
[2017-02-20 18:18] LABS: Troponin I <0.012 ng/mL (0.000-0.034)
[2017-02-20 18:27] LABS: Alcohol 589 mg/dL
[2017-02-20] MEDS ORDERED: SODIUM CHLORIDE 0.9% 1,000 ML IV ONE ×2 (18:41→20:23)
[2017-02-20] MEDS ORDERED: THIAMINE 100 MG/ML 2 ML VIAL IM STA (18:42)
[2017-02-20] MEDS ORDERED: LORazepam 2 MG/ML INJ IV PRN ×2 (18:42)
[2017-02-20 20:09] VITALS: RESP 18
[2017-02-20] MEDS ORDERED: NALOXONE 0.4 MG/ML 1 ML VIAL IV PRN (20:26)
[2017-02-20] MEDS: LORazepam 2 MG/ML INJ IV PRN (20:50)
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
[2017-02-20 22:05] VITALS: BMI 18.2
[2017-02-20] MEDS: FAMOTIDINE 20 MG TAB PO SCH (22:18)
[2017-02-20] MEDS: SODIUM CHLORIDE 0.9% 1,000 ML IV SCH (22:43)
[2017-02-20] MEDS: HEPARIN SODIUM,PORCINE 5,000 UNIT/ML 1 ML VIAL SQ SCH (22:44)
[2017-02-21] MEDS: LORazepam 2 MG/ML INJ IV PRN (06:41)
[2017-02-21 06:56] LABS: Glucose,Whole Blood 89 mg/dL (75-99)
[2017-02-21 07:03] LABS: Basophils % (A) 0 %; CH 34.3; CHCM 34.8; Eosinophils % (A) 1 %; HCT 34.5 % (39.0-53.0); HDW 2.37; HGB 11.9 gm/dL (13.0-17.5); Luc # (Auto) 0.08; Luc % (Auto) 2; Lymphocytes # (A) 1.4 k/uL (1.0-4.8); Lymphocytes % (A) 28 %; MCH 34.1 pg (25.0-35.0); MCHC 34.5 g/dL (31.0-37.0); MCV 98.9 fL (80.0-100.0); Mean Platelet Volume 8.4; Monocytes # (A) 0.2 k/uL (0-1.0); Monocytes % (A) 4 %; Neutrophils # (A) 3.3 k/uL (1.3-7.7); Neutrophils % (A) 65 %; RBC 3.48 m/uL (4.30-5.90); RDW 14.6 % (11.5-15.5); WBC 5.1 k/uL (3.8-10.6); WBC (Perox) 5.47
[2017-02-21 07:35] VITALS: PULSE 79
[2017-02-21 07:37] LABS: ALT 40 U/L (21-72); AST 64 U/L (17-59); Alkaline Phosphatase 70 U/L (38-126); Anion Gap 11 mmol/L; Blood Urea Nitrogen 8 mg/dL (9-20); Calcium 8.3 mg/dL (8.4-10.2); Carbon Dioxide 26 mmol/L (22-30); Chloride 104 mmol/L (98-107); Glucose 90 mg/dL (74-99); Magnesium 1.2 mg/dL (1.6-2.3); Non-African American GFR(MDRD) >60 (>60 ml/min/1.73 sqM); Potassium 3.2 mmol/L (3.5-5.1); Sodium 141 mmol/L (137-145); Total Bilirubin 0.8 mg/dL (0.2-1.3); Total Protein 6.6 g/dL (6.3-8.2)
[2017-02-21] MEDS: SODIUM CHLORIDE 0.9% 1,000 ML IV SCH ×3 (07:48→15:28)
[2017-02-21] MEDS ORDERED: METOPROLOL TARTRATE 25 MG TAB PO STA (08:01)
[2017-02-21] MEDS ORDERED: ASPIRIN 81 MG PO SCH (09:00)
[2017-02-21] MEDS ORDERED: POTASSIUM CHLORIDE ER 20 MEQ TAB.ER PO STA (09:12)
[2017-02-21] MEDS: FAMOTIDINE 20 MG TAB PO SCH (09:14)
[2017-02-21] MEDS: HEPARIN SODIUM,PORCINE 5,000 UNIT/ML 1 ML VIAL SQ SCH ×2 (09:14→16:17)
[2017-02-21] MEDS: MAGNESIUM SULFATE-D5W PMX 1 GM in DEXTROSE/WATER 1 100ML.BAG IVPB SCH ×3 (09:53→12:12)
[2017-02-21] MEDS ORDERED: POTASSIUM CHLORIDE ER 20 MEQ TAB.ER PO ONE (10:30)
--- NOTE | 2017-02-21 11:33 | CONS ---
CONSULTATION REASON FOR CONSULT: QT prolongation and atypical chest pain. Mr. Manuel Malave is a 56-year-old gentleman with a history of alcoholism who came into the hospital very much intoxicated. He has history of lung cancer status post chemotherapy. After arrival, he complained of some sharp pains in the chest. About 2 years ago he had a stress echo that was negative. He is still intoxicated but able to give me a history. Denies any chest discomfort. He has had multiple hospitalizations. He had a CT angiography in November of this year when he came in and there was no evidence of a pulmonary embolism at that time. This hospitalization seems to be more for alcoholism. On reviewing the EKG the QT is not significantly prolonged. There is some QRS widening with underlying IVCD type picture and LVH. I do not believe this is significant that would require any intervention at this time. His last echocardiogram was performed in 2016 and revealed normal systolic function of ejection fraction of 55-60% without pulmonary hypertension. Patient at this time seems to be tremulous and anxious. Denies chest pain, and he seems to be still intoxicated. His platelet count is also reduced at 86 which may be related to alcoholism and his potassium is low at 3.2. His initial troponin is normal. Repeat troponin has been requested and is pending. PAST MEDICAL HISTORY: 1. History of lung CA for which he had the chemo therapy. 2. History of hyperlipidemia. 3. Hypertension. 4. Alcoholism with repeated intoxications. 5. He is status post a right knee injury. 6. 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 7. Ventral hernia. 8. Arthroscopic surgery. ALLERGIES: None. MEDICATIONS: At home include: 1. Metoprolol 25 mg b.i.d. 2. Folic acid. 3. Thiamine. 4. Keppra 250 mg q.12 hours. I am not sure how compliant he is with medications and he drank very heavily. Alcohol level was 589. PHYSICAL EXAMINATION: On examination, blood pressure is 140/70, pulse is about 90 per minute, regular. HEENT unremarkable. Fundus was not examined by me. Neck is supple. There is no JVD. I do not hear a carotid bruit. Heart exam is S1, S2 with some tachycardia. Lungs revealed diminished air entry. Abdomen is soft. Lower extremities revealed diminished pulses. Central nervous system grossly no focal deficits. IMPRESSION: 1. Acute alcohol intoxication. 2. History of lung cancer status post surgery and chemotherapy. 3. Atypical chest pain. 4. Abnormal EKG with a sinus mechanism with nonspecific IVCD with left ventricular hypertrophy and leftward axis but no significant QT prolongation. RECOMMENDATIONS: I am recommending that we add a beta madi, Lopressor 25 mg now and t.i.d. and also check echocardiogram. No further intervention necessary. He should be treated for his acute alcohol intoxication and possible withdrawal which the hospitalist is going to pursue. Thank you very much for the consult. [id number] / IJN: [id number] /
[2017-02-21 11:59] LABS: Glucose,Whole Blood 117 mg/dL (75-99)
[2017-02-21] MEDS: THIAMINE 100 MG TAB PO SCH ×2 (12:14→17:12)
--- NOTE | 2017-02-21 13:32 | ECHOF ---
Referral Reason:prolonged QT MEASUREMENTS -------- HEIGHT: 172.7 cm WEIGHT: 54.4 kg BP: 139/72 IVSd: 1.3 cm (0.6 - 1.1) LVIDd: 3.8 cm (3.9 - 5.3) LVPWd: 1.2 cm (0.6 - 1.1) IVSs: 1.5 cm LVIDs: 3.2 cm LVPWs: 1.4 cm LAESV Index (A-L): 20.14 ml/m Ao Diam: 3.2 cm (2.0 - 3.7) MV EXCURSION: 21.150 mm (> 18.000) MV EF SLOPE: 67 mm/s (70 - 150) MV E Nikolai: 0.71 m/s MV DecT: 255 ms MV A Nikolai: 1.01 m/s MV E/A Ratio: 0.70 RAP: 5.00 mmHg RVSP: 14.52 mmHg FINDINGS -------- Sinus rhythm. This was a technically adequate study. The left ventricular size is normal. There is mild concentric left ventricular hypertrophy. Overall left ventricular systolic function is low-normal with, an EF between 50 - 55 %. The right ventricle is normal in size. Normal LA size by volume 22+/-6 ml/m2. The right atrial size is normal. The aortic valve was not well visualized. Mild mitral regurgitation is present. Mild tricuspid regurgitation present. There is no evidence of pulmonary hypertension. The right ventricular systolic pressure, as measured by Doppler, is 14.52mmHg. The pulmonic valve was not well visualized. The aortic root size is normal. There is no pericardial effusion. CONCLUSIONS -------- 1. The left ventricular size is normal. 2. The aortic root size is normal. 3. There is no pericardial effusion. 4. There is mild concentric left ventricular hypertrophy. 5. Overall left ventricular systolic function is low-normal with, an EF between 50 - 55 %. 6. The aortic valve was not well visualized. 7. Mild mitral regurgitation is present. 8. Mild tricuspid regurgitation present. 9. There is no evidence of pulmonary hypertension. 10. The right ventricular systolic pressure, as measured by Doppler, is 14.52mmHg. 11. The pulmonic valve was not well visualized. ADMINISTRATION PHYSICIAN: Purnima Rodríguez RDCS
[2017-02-21 15:35] VITALS: BP 153/78; TEMP 98.7
[2017-02-21] MEDS ORDERED: METOPROLOL TARTRATE 25 MG TAB PO SCH (16:00)
[2017-02-21 17:14] LABS: Glucose,Whole Blood 105 mg/dL (75-99)
[2017-02-21 17:29] LABS: Magnesium 2.1 mg/dL (1.6-2.3)
--- NOTE | 2017-02-21 18:21 | P.DS ---
Providers Date of admission: 02/20/17 18:41 Expected date of discharge: 02/21/17 Attending physician: Eber Subramanian MD Consults: 02/20/17 21:47 Consult Physician Routine Consulting Provider: Chacorta Moncada Consult Reason/Comments: prolonged QRS Do you want consulting provider notified?: Yes Primary care physician: Stated None - Discharge Diagnosis(es) (1) Alcohol intoxication Current Visit: Yes Status: Acute (2) Hypokalemia Current Visit: Yes Status: Acute (3) Hypomagnesemia Current Visit: Yes Status: Acute (4) Prolongation of QRS complex on electrocardiography Current Visit: Yes Status: Acute (5) Nausea & vomiting Current Visit: Yes Status: Acute (6) Alcohol withdrawal Current Visit: No Status: Acute Hospital Course: The patient is a 56-year-old male was admitted with acute alcohol intoxication significantly elevated blood alcohol level 569, is admitted for detoxification on treatment for alcohol withdrawal, he was started on IV thiamine vitamins and folic acid. He had very mild alcohol withdrawal. Cardiology was consulted secondary to a widened QRS interval prolonged QT, echocardiogram performed Showed normal ejection fraction., Review of the EKG showed some very nonspecific intraventricular conduction delay not warranting any intervention. Urology recommended titrating up the patient's metoprolol to 25 mg by mouth 3 times a day, this was done and the patient was subsequently discharged home in stable condition after his electrolytes were corrected. Discharge process took approximately 25 minutes. Plan - Discharge Summary New Discharge Prescriptions: New Famotidine [Pepcid] 20 mg PO BID tab Metoprolol Tartrate [Lopressor] 25 mg PO TID #90 tab Thiamine [Vitamin B-1] 100 mg PO BID@1200,1700 tab Continue levETIRAcetam [Keppra] 250 mg PO Q12HR Thiamine [Vitamin B-1] 100 mg PO DAILY Folic Acid 1 mg PO DAILY chlordiazePOXIDE HCL 25 mg PO TID Discontinued Metoprolol Tartrate 25 mg PO BID Discharge Medication List Folic Acid 1 mg PO DAILY 02/20/17 [History] Thiamine [Vitamin B-1] 100 mg PO DAILY 02/20/17 [History] chlordiazePOXIDE HCL 25 mg PO TID 02/20/17 [History] levETIRAcetam [Keppra] 250 mg PO Q12HR 02/20/17 [History] Famotidine [Pepcid] 20 mg PO BID tab 02/21/17 [Rx] Metoprolol Tartrate [Lopressor] 25 mg PO TID #90 tab 02/21/17 [Rx] Thiamine [Vitamin B-1] 100 mg PO BID@1200,1700 tab 02/21/17 [Rx] Follow up Appointment(s)/Referral(s): Dg Santacruz MD [STAFF PHYSICIAN] - 2 Weeks (Office closed now. Please call office in AM to make appointment.) None,Stated [Primary Care Provider] - 1-2 days (Call your primary doctor for an appointment.) Patient Instructions/Handouts: Alcohol Intoxication (GEN) Discharge Disposition: HOME SELF-CARE
== END 2017-02-21 18:47 | disposition home or self-care (01) ==
LOC: EC 16:20 → 3OBS 18:41
PROVIDERS: ADMIT Family Medicine; ATTEND Family Medicine
DX: F10.229 Alcohol dependence with intoxication, unspecified (principal); F10.239 Alcohol dependence with withdrawal, unspecified; Y90.8 Blood alcohol level of 240 mg/100 ml or more; E87.6 Hypokalemia; E83.42 Hypomagnesemia; R11.2 Nausea with vomiting, unspecified; I45.81 Long QT syndrome; Z59.0 Homelessness; R07.89 Other chest pain; Z92.21 Personal history of antineoplastic chemotherapy; Z85.118 Personal history of other malignant neoplasm of bronchus and lung; Z87.891 Personal history of nicotine dependence; Z79.899 Other long term (current) drug therapy; E78.5 Hyperlipidemia, unspecified; I10 Essential (primary) hypertension; Z91.19 Patient's noncompliance with other medical treatment and regimen; B19.20 Unspecified viral hepatitis C without hepatic coma; H54.42 Blindness, left eye, normal vision right eye; D69.6 Thrombocytopenia, unspecified; R56.9 Unspecified convulsions
CPT/HCPCS: 96361 ×4; 99285; 96365; 96366; 96372 ×2; 96375; 96376; 82075; 36415; 93005; 93306; 80053 ×2; 82150; 82550; 82553; 83690; 83735 ×2; 84132; 84484 ×2; 85025 ×2; 82105; 80320 ×2; G0378 ×2; J2060 ×2; J1644 ×2; J3411; J3475

== ENCOUNTER 2017-08-25 17:27 | Emergency (ER) | payer OTHER ==
[~2017-08-25 17:27] MED LIST: THIAMINE 100 MG TAB PO SCH
[2017-08-25] MEDS ORDERED: LORazepam 2 MG/ML INJ IV PRN ×3 (17:59)
[2017-08-25] MEDS ORDERED: THIAMINE 100 MG/ML 2 ML VIAL IM STA (17:59)
--- NOTE | 2017-08-25 18:46 | CT ---
EXAMINATION TYPE: CT brain rex gabriel con DATE OF EXAM: 08/25/2017 COMPARISON: NONE HISTORY: FAll today. headache CT DLP: 1373.2 mGycm Automated exposure control for dose reduction was used. TECHNIQUE: CT scan of the head and cervical spine are performed without contrast. FINDINGS: There is no acute intracranial hemorrhage, mass effect, or midline shift identified. The ventricles and sulci are within normal limits in size. The globes are intact and the visualized sin uses are clear. Cervical spine is visualized in its entirety from C1 through upper thoracic levels and demonstrates s atisfactory alignment without evidence of acute fracture or dislocation. There is extensive facet hyp ertrophy which contributes to variable amounts of neural foraminal narrowing worse on the left than t he right. Visualized upper lung huerta demonstrate diffuse and Linwood changes in the left lung apex. IMPRESSION: 1. There is no acute fracture or dislocation evident in the cervical spine. 2. No acute intracranial hemorrhage, mass effect, or midline shift is seen.
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
[2017-08-26 03:09] VITALS: BP 173/92; PULSE 124; RESP 14; TEMP 98.4
== END 2017-08-26 03:20 | disposition home or self-care (01) ==
LOC: EC 17:27
DX: F10.129 Alcohol abuse with intoxication, unspecified (principal); R45.851 Suicidal ideations; Z85.118 Personal history of other malignant neoplasm of bronchus and lung; H54.8 Legal blindness, as defined in USA
CPT/HCPCS: 82075; 72125; 70450; 99285; 96374; 96372; J2060; J3411

== ENCOUNTER 2017-08-26 11:41 | Emergency (ER) | payer OTHER ==
[2017-08-26] MEDS ORDERED: KETOROLAC 30 MG/ML 1 ML VIAL IVP STA (12:13)
[2017-08-26] MEDS ORDERED: FAMOTIDINE 20 MG/2 ML VIAL IV STA (12:13)
[2017-08-26] MEDS ORDERED: SODIUM CHLORIDE 0.9% 1,000 ML with MVI, ADULT NO.4 WITH VIT K 10 ML, THIAMINE 100 MG, F... IV ONE ×4 (12:13)
[2017-08-26 12:21] LABS: Amphetamine Screen,Urine Not Detected (NotDetected); Barbiturate Screen,Urine Not Detected (NotDetected); Benzodiazepines Screen,Urine Not Detected (NotDetected); Cocaine Screen,Urine Not Detected (NotDetected); Methadone Screen, Urine Not Detected (NotDetected); Opiate Screen,Urine Not Detected (NotDetected); Oxycodone Screen, Urine Not Detected (NotDetected); Phencyclidine Screen,Urine Not Detected (NotDetected); Tricyclic Antidepressant,Urine Not Detected (NotDetected); Urn Cannabinoid Scrn Not Detected (NotDetected)
[2017-08-26 13:30] LABS: Basophils % (A) 0 %; Eosinophils # (A) 0.1 k/uL (0-0.7); Eosinophils % (A) 1 %; HCT 41.6 % (39.0-53.0); HGB 14.3 gm/dL (13.0-17.5); Lymphocytes # (A) 2.4 k/uL (1.0-4.8); Lymphocytes % (A) 25 %; MCH 31.7 pg (25.0-35.0); MCHC 34.4 g/dL (31.0-37.0); MCV 92.3 fL (80.0-100.0); Mean Platelet Volume 6.7; Monocytes # (A) 0.3 k/uL (0-1.0); Monocytes % (A) 3 %; Neutrophils # (A) 6.6 k/uL (1.3-7.7); Neutrophils % (A) 69 %; Platelet Count 212 k/uL (150-450); RDW 13.5 % (11.5-15.5); WBC 9.6 k/uL (3.8-10.6)
[2017-08-26 13:39] LABS: Albumin 4.2 g/dL (3.5-5.0); Amylase 90 U/L (30-110); Anion Gap 17 mmol/L; Calcium 9.2 mg/dL (8.4-10.2); Carbon Dioxide 26 mmol/L (22-30); Chloride 106 mmol/L (98-107); Glucose 86 mg/dL (74-99); Lipase 94 U/L (23-300); Sodium 149 mmol/L (137-145); Total Bilirubin 0.8 mg/dL (0.2-1.3); Total Protein 7.5 g/dL (6.3-8.2)
[2017-08-26 13:44] LABS: Alcohol 299 mg/dL; Blood Urea Nitrogen 15 mg/dL (9-20); Potassium 4.5 mmol/L (3.5-5.1)
[2017-08-26 13:45] LABS: ALT 70 U/L (21-72); AST 104 U/L (17-59); Alkaline Phosphatase 86 U/L (38-126); Magnesium 1.9 mg/dL (1.6-2.3)
--- NOTE | 2017-08-26 14:18 | XR ---
EXAMINATION TYPE: XR abdomen acute w cxr , 4 VIEWS DATE OF EXAM ORDERED: 08/26/2017 HISTORY: Pain. COMPARISON: None. FINDINGS: The lungs are overinflated but clear. Pleural spaces are clear. Heart size upper limits of normal. Within the abdomen, the abdominal gas pattern is normal. There is no evidence of obstruction or free air. There are phleboliths in the left hemipelvis. Both femoral heads are nonspherical. IMPRESSION: 1. COPD. 2. BORDERLINE CARDIOMEGALY. 3. NO ACUTE INTRA-ABDOMINAL ABNORMALITY. 4. PLEASE CORRELATE CLINICALLY FOR FEMOROACETABULAR IMPINGEMENT SYNDROME
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
[2017-08-26] MEDS ORDERED: MAG HYDROX/AL HYDROX/SIMETH 30 ML, HYOSCYAMINE ELIXIR 10 ML, CIMETIDINE HCL 300 MG PO STA ×3 (21:59)
[2017-08-27 00:09] VITALS: BP 154/70; PULSE 91; RESP 18; TEMP 98.9
== END 2017-08-27 00:08 | disposition home or self-care (01) ==
LOC: EC 11:41
DX: F32.9 Major depressive disorder, single episode, unspecified (principal); F10.129 Alcohol abuse with intoxication, unspecified; R45.851 Suicidal ideations; R10.13 Epigastric pain; R07.9 Chest pain, unspecified; Z87.891 Personal history of nicotine dependence; Z85.118 Personal history of other malignant neoplasm of bronchus and lung; Z90.2 Acquired absence of lung [part of]
CPT/HCPCS: 82075; 36415; 93005; 80053; 82140; 82150; 82550; 82553; 83690; 83735; 84484; 85025; 80306; 80320; 74022; 99285; 96365; 96366 ×9; 96375 ×2; J3411; J1885

== ENCOUNTER 2017-08-27 03:31 | Observation (INO) | payer OTHER ==
[2017-08-27] MEDS ORDERED: RX INFO: IV CONTRAST WAS GIVEN 1 EACH MISC MISCELLANE PRN (03:42)
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
[2017-08-27 04:11] LABS: Basophils % (A) 0 %; Eosinophils # (A) 0.1 k/uL (0-0.7); Eosinophils % (A) 2 %; HCT 37.1 % (39.0-53.0); HGB 12.4 gm/dL (13.0-17.5); Lymphocytes # (A) 2.6 k/uL (1.0-4.8); Lymphocytes % (A) 29 %; MCH 30.7 pg (25.0-35.0); MCHC 33.5 g/dL (31.0-37.0); MCV 91.8 fL (80.0-100.0); Mean Platelet Volume 7.1; Monocytes # (A) 0.4 k/uL (0-1.0); Monocytes % (A) 4 %; Neutrophils # (A) 5.7 k/uL (1.3-7.7); Neutrophils % (A) 63 %; Platelet Count 194 k/uL (150-450); RBC 4.04 m/uL (4.30-5.90); RDW 13.5 % (11.5-15.5)
[2017-08-27 04:20] LABS: Partial Thromboplastin Time 24.7 sec (22.0-30.0); Prothrombin Time 9.8 sec (9.0-12.0)
[2017-08-27 04:22] LABS: ALT 64 U/L (21-72); AST 90 U/L (17-59); Albumin 4.1 g/dL (3.5-5.0); Alkaline Phosphatase 82 U/L (38-126); Anion Gap 15 mmol/L; Blood Urea Nitrogen 14 mg/dL (9-20); Calcium 9.1 mg/dL (8.4-10.2); Carbon Dioxide 25 mmol/L (22-30); Chloride 102 mmol/L (98-107); Glucose 82 mg/dL (74-99); Magnesium 1.8 mg/dL (1.6-2.3); Potassium 3.8 mmol/L (3.5-5.1); Sodium 142 mmol/L (137-145); Total Bilirubin 0.9 mg/dL (0.2-1.3); Total Protein 7.1 g/dL (6.3-8.2)
--- NOTE | 2017-08-27 04:41 | CT ---
EXAM: CT Abdomen and Pelvis With Intravenous Contrast CLINICAL HISTORY: Its. reason CT Reason: pain/LLQ TECHNIQUE: Axial computed tomography images of the abdomen and pelvis with intravenous contrast. DLP is 472.20 mGy-cm. This CT exam was performed using one or more of the following dose reduction techniques: automated exposure control, adjustment of the mA and/or kV according to patient size, and/or use of iterative reconstruction technique. COMPARISON: 04/24/16 FINDINGS: Lower thorax: No acute findings. ABDOMEN: Liver: Diffuse fatty metamorphosis of the liver. Gallbladder and bile ducts: Unremarkable. No calcified stones. No ductal dilation. Pancreas: Unremarkable. No mass. No ductal dilation. Spleen: Unremarkable. No splenomegaly. Adrenals: Unremarkable. No mass. Kidneys and ureters: Normal left renal axis with hilum oriented laterally. Stable 5 mm nonobstructive calculus in the upper pole of the left kidney. Stomach and bowel: Unremarkable. No obstruction. No mucosal thickening. Appendix: 9 mm appendicolith noted in the appendix without evidence of appendicitis. PELVIS: Bladder: Unremarkable. No mass. Reproductive: Unremarkable as visualized. ABDOMEN and PELVIS: Intraperitoneal space: Unremarkable. No free air. No significant fluid collection. Bones/joints: See above. Soft tissues: Unremarkable. Vasculature: Moderate atherosclerotic changes in the abdominal aorta and major branches. No abdominal aortic aneurysm. Lymph nodes: Unremarkable. No enlarged lymph nodes. IMPRESSION: 1. No acute intra-abdominal or intrapelvic process. 2. Stable changes including fatty metamorphosis of the liver and 5 mm nonobstructive calculus in the upper pole of the left kidney.
[2017-08-27] MEDS ORDERED: THIAMINE 100 MG/ML 2 ML VIAL IM STA (04:50)
[2017-08-27] MEDS ORDERED: LORazepam 2 MG/ML INJ IV PRN ×3 (04:50)
[2017-08-27] MEDS ORDERED: NALOXONE 0.4 MG/ML 1 ML VIAL IV PRN (05:04)
[2017-08-27] MEDS ORDERED: 0.9% NACL WITH KCL 20 MEQ/L 1,000 ML IV SCH (06:00)
[2017-08-27 06:52] VITALS: RESP 16
[2017-08-27 07:26] VITALS: BP 160/83; PULSE 68; TEMP 98.3
[2017-08-27] MEDS ORDERED: PANTOPRAZOLE 40 MG/10 ML VIAL IV SCH (09:00)
[2017-08-27] MEDS ORDERED: INFLUENZA VACCINE (6 MOS+) 60 MCG/0.5 ML SYRINGE IM ONE (09:12)
[2017-08-27] MEDS ORDERED: PNEUMOCOCCAL VACC-PNEUMOVAX 23 25 MCG/0.5 ML VIAL IM ONE (09:13)
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
--- NOTE | 2017-08-27 14:43 | P.DS ---
Providers Date of admission: 08/27/17 05:12 Attending physician: Kiran Garzon Consults: 08/27/17 05:05 Consult Physician Routine Consulting Provider: Derrick Samuel Consult Reason/Comments: Hematochezia Do you want consulting provider notified?: Yes, Notify in am Primary care physician: Agapito Burns [facility] Course: Patient left AGAINST MEDICAL ADVICE Patient Condition at Discharge: Stable Plan - Discharge Summary Discharge Rx Participant: No New Discharge Prescriptions: No Action Diazepam [Valium] 5 mg PO TID #15 tab Nitroglycerin Sl Tabs [Nitrostat] 0.4 mg SUBLINGUAL Q5M PRN PRN Reason: Chest Pain Discharge Medication List Diazepam [Valium] 5 mg PO TID #15 tab 08/26/17 [Rx] Nitroglycerin Sl Tabs [Nitrostat] 0.4 mg SUBLINGUAL Q5M PRN 08/27/17 [History] Follow up Appointment(s)/Referral(s): Katy Altman MD [Primary Care Provider] - 1-2 days Discharge Disposition: Left Against Medical Advice
[2017-08-27] MEDS ORDERED: THIAMINE 100 MG TAB PO SCH (17:00)
== END 2017-08-27 13:43 | disposition left against medical advice (07) ==
LOC: EC 03:31 → 3SUR 05:12
PROVIDERS: ADMIT Hospitalist; ATTEND Hospitalist
DX: K92.1 Melena (principal); R10.32 Left lower quadrant pain; Z53.21 Procedure and treatment not carried out due to patient leaving prior to being seen by health care provider; I10 Essential (primary) hypertension; J44.9 Chronic obstructive pulmonary disease, unspecified; F10.10 Alcohol abuse, uncomplicated; E78.5 Hyperlipidemia, unspecified; K76.9 Liver disease, unspecified; H54.40 Blindness, one eye, unspecified eye; F17.200 Nicotine dependence, unspecified, uncomplicated; M46.90 Unspecified inflammatory spondylopathy, site unspecified; Z79.899 Other long term (current) drug therapy; Z86.19 Personal history of other infectious and parasitic diseases; Z85.118 Personal history of other malignant neoplasm of bronchus and lung; Z82.0 Family history of epilepsy and other diseases of the nervous system
CPT/HCPCS: 99285 ×2; 96374 ×2; 96372 ×2; 96375; 36415; 80053; 83735; 85025; 85610; 85730; 80320; 74177; G0378; J3411; Q9967; C9113

== ENCOUNTER 2018-11-19 13:26 | Observation (INO) | payer OTHER ==
[2018-11-19] MEDS ORDERED: SODIUM CHLORIDE 0.9% 1,000 ML with MVI, ADULT NO.4 WITH VIT K 10 ML, THIAMINE 100 MG, F... IV ONE ×4 (14:15)
[2018-11-19 14:32] LABS: Basophils % (A) 1 %; Eosinophils # (A) 0.1 k/uL (0-0.7); Eosinophils % (A) 1 %; HCT 41.5 % (39.0-53.0); Lymphocytes # (A) 2.6 k/uL (1.0-4.8); Lymphocytes % (A) 33 %; MCH 30.2 pg (25.0-35.0); MCHC 33.8 g/dL (31.0-37.0); MCV 89.3 fL (80.0-100.0); Mean Platelet Volume 6.8; Monocytes # (A) 0.4 k/uL (0-1.0); Monocytes % (A) 4 %; Neutrophils # (A) 4.7 k/uL (1.3-7.7); Neutrophils % (A) 59 %; Platelet Count 251 k/uL (150-450); RBC 4.64 m/uL (4.30-5.90); RDW 14.9 % (11.5-15.5)
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
[2018-11-19 14:40] LABS: ALT 33 U/L (21-72); AST 67 U/L (17-59); African American GFR (CKD) >90 (>60 ml/min/1.73 sqM); Albumin 4.7 g/dL (3.5-5.0); Alkaline Phosphatase 95 U/L (38-126); Anion Gap 15 mmol/L; Blood Urea Nitrogen 10 mg/dL (9-20); Calcium 9.1 mg/dL (8.4-10.2); Carbon Dioxide 24 mmol/L (22-30); Chloride 105 mmol/L (98-107); Glucose 90 mg/dL (74-99); Magnesium 1.7 mg/dL (1.6-2.3); Potassium 3.8 mmol/L (3.5-5.1); Sodium 144 mmol/L (137-145)
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
[2018-11-19] MEDS ORDERED: SODIUM CHLORIDE 0.9% 1,000 ML IV ONE (16:18)
[2018-11-19] MEDS ORDERED: ONDANSETRON 4 MG/2 ML VIAL IVP STA (16:21)
[2018-11-19] MEDS ORDERED: LORazepam 2 MG/ML INJ IV PRN ×2 (16:55)
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
[2018-11-19] MEDS: METOPROLOL TARTRATE 25 MG TAB PO SCH (19:55)
[2018-11-19] MEDS: FAMOTIDINE 20 MG TAB PO SCH (19:56)
[2018-11-20] MEDS: HEPARIN SODIUM,PORCINE 5,000 UNIT/ML 1 ML VIAL SQ SCH ×3 (00:30→17:03)
[2018-11-20] MEDS: LORazepam 2 MG/ML INJ IV PRN ×4 (00:31→20:04)
[2018-11-20] MEDS: METOPROLOL TARTRATE 25 MG TAB PO SCH ×2 (09:38→20:04)
[2018-11-20] MEDS: THIAMINE 100 MG TAB PO SCH ×2 (09:38→17:08)
[2018-11-20] MEDS: MULTIVITAMINS, THERA 1 EACH TAB PO SCH (09:38)
[2018-11-20] MEDS: FAMOTIDINE 20 MG TAB PO SCH ×2 (10:11→20:04)
--- NOTE | 2018-11-20 15:07 | P.PN ---
Subjective Patient is admitted for all call withdrawal so far patient doesn't have any withdrawal expected to have withdrawals tonight. Constitutional: Denied any fatigue denied any fever. Cardio vascular: denied any chest pain, palpitations Gastrointestinal denied any nausea vomiting Pulmonary: Denied any shortness of breath cough Neurologic denied any new focal deficits All inpatient medications were reviewed and appropriate changes in these medications as dictated in the interval history and assessment and plan. Objective - Vital Signs Vital signs: Vital Signs Temp 98.2 F 11/20/18 11:47 Pulse 76 11/20/18 11:47 Resp 15 11/20/18 11:47 BP 132/62 11/20/18 11:47 Pulse Ox 96 11/20/18 11:47 Intake & Output 11/19/18 11/20/18 11/20/18 18:59 06:59 18:59 Intake Total 2029 360 Balance 2029 360 Weight 72.575 kg Intake: Intake, IV Titration 650 Amount Sodium Chloride 0.9% 1, 650 000 ml @ 75 mls/hr IV . [id number] Rx#:[id number] Oral 1380 360 Other: Voiding Method Toilet Toilet # Voids 2 4 - Exam PHYSICAL EXAMINATION: GENERAL: The patient is alert and oriented x3, not in any acute distress. Well developed, well nourished. HEENT: Pupils are round and equally reacting to light. EOMI. No scleral icterus. No conjunctival pallor. Normocephalic, atraumatic. No pharyngeal erythema. No thyromegaly. CARDIOVASCULAR: S1 and S2 present. No murmurs, rubs, or gallops. PULMONARY: Chest is clear to auscultation, no wheezing or crackles. ABDOMEN: Soft, nontender, nondistended, normoactive bowel sounds. No palpable organomegaly. MUSCULOSKELETAL: No joint swelling or deformity. EXTREMITIES: No cyanosis, clubbing, or pedal edema. NEUROLOGICAL: Gross neurological examination did not reveal any focal deficits. SKIN: No rashes. - Labs CBC & Chem 7: 11/19/18 14:16 11/19/18 14:16 Assessment and Plan Plan: -Alcohol intoxication patient is receiving thiamine multivitamin IV fluids. -Alcohol withdrawal: Patient will be on Ativan [facility] protocol -History of lung cancer in remission - Hyperlipidemia, hypertension-for these patient is not using any medications if needed the patient can be initiated medications for these as an outpatient -COPD without any acute exacerbation -Patient will need pharmacologic GI and DVT prophylaxis
[2018-11-21] MEDS: HEPARIN SODIUM,PORCINE 5,000 UNIT/ML 1 ML VIAL SQ SCH ×2 (00:22→09:51)
[2018-11-21] MEDS: MULTIVITAMINS, THERA 1 EACH TAB PO SCH (09:51)
[2018-11-21] MEDS: FAMOTIDINE 20 MG TAB PO SCH (09:51)
[2018-11-21] MEDS: METOPROLOL TARTRATE 25 MG TAB PO SCH (09:51)
[2018-11-21 12:32] VITALS: BP 177/85; PULSE 71; RESP 15; TEMP 97.6
--- NOTE | 2018-11-21 14:52 | P.DS ---
Providers Date of admission: 11/19/18 16:18 Attending physician: Savannah Varela Primary care physician: Agapito Burns [facility] Course: patient is admitted for alcohol withdrawals. Patient doesn't have any significant withdrawal today patient is not requiring Ativan will be discharged today patient is willing to quit alcohol counseling was provided regarding this.80 and OT evaluated the patient and not recommending any subacute rehabilitation or HOME care PHYSICAL EXAMINATION: GENERAL: The patient is alert and oriented x3, not in any acute distress. Well developed, well nourished. HEENT: Pupils are round and equally reacting to light. EOMI. No scleral icterus. No conjunctival pallor. Normocephalic, atraumatic. No pharyngeal erythema. No thyromegaly. CARDIOVASCULAR: S1 and S2 present. No murmurs, rubs, or gallops. PULMONARY: Chest is clear to auscultation, no wheezing or crackles. ABDOMEN: Soft, nontender, nondistended, normoactive bowel sounds. No palpable organomegaly. MUSCULOSKELETAL: No joint swelling or deformity. EXTREMITIES: No cyanosis, clubbing, or pedal edema. NEUROLOGICAL: Gross neurological examination did not reveal any focal deficits. SKIN: No rashes. Plan - Discharge Summary Discharge Rx Participant: Yes New Discharge Prescriptions: New Famotidine [Pepcid] 20 mg PO BID #30 tab Thiamine [Vitamin B-1] 100 mg PO BID-W/MEALS #30 tab Continue Metoprolol Tartrate [Lopressor] 25 mg PO BID Ibuprofen 800 mg PO DAILY Discharge Medication List Ibuprofen 800 mg PO DAILY 11/19/18 [History] Metoprolol Tartrate [Lopressor] 25 mg PO BID 11/19/18 [History] Famotidine [Pepcid] 20 mg PO BID #30 tab 11/21/18 [Rx] Thiamine [Vitamin B-1] 100 mg PO BID-W/MEALS #30 tab 11/21/18 [Rx] Follow up Appointment(s)/Referral(s): Katy Altman MD [Primary Care Provider] - 3 Days
[2018-11-21] MEDS: THIAMINE 100 MG TAB PO SCH (15:32)
== END 2018-11-21 16:30 | disposition home or self-care (01) ==
LOC: EC 13:26 → 3NMEDONC 16:18
PROVIDERS: ADMIT Internal Medicine; ATTEND Internal Medicine
DX: F10.239 Alcohol dependence with withdrawal, unspecified (principal); F10.229 Alcohol dependence with intoxication, unspecified; Z71.41 Alcohol abuse counseling and surveillance of alcoholic; E78.5 Hyperlipidemia, unspecified; I10 Essential (primary) hypertension; S00.81XA Abrasion of other part of head, initial encounter; J44.9 Chronic obstructive pulmonary disease, unspecified; H54.8 Legal blindness, as defined in USA; M19.042 Primary osteoarthritis, left hand; M19.041 Primary osteoarthritis, right hand; M19.012 Primary osteoarthritis, left shoulder; M19.011 Primary osteoarthritis, right shoulder; B19.20 Unspecified viral hepatitis C without hepatic coma; Z87.891 Personal history of nicotine dependence; Z85.118 Personal history of other malignant neoplasm of bronchus and lung; Z86.19 Personal history of other infectious and parasitic diseases; Z79.899 Other long term (current) drug therapy
CPT/HCPCS: 96372 ×2; 82075; 96374; 99285; 36415; 80053; 83735; 85025; 72125; 70450; G0378 ×3; J2060 ×2; J1644 ×2; J3411; J2405

== ENCOUNTER 2021-09-02 11:43 | Inpatient (IN) | payer MEDICAID, OTHER ==
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
[2021-09-02 13:14] LABS: Basophils # (A) 0.1 k/uL (0-0.2); Basophils % (A) 0 %; Eosinophils # (A) 0.2 k/uL (0-0.7); Eosinophils % (A) 2 %; HCT 46.6 % (39.0-53.0); HGB 15.5 gm/dL (13.0-17.5); Lymphocytes # (A) 1.4 k/uL (1.0-4.8); Lymphocytes % (A) 13 %; MCH 32.1 pg (25.0-35.0); MCHC 33.3 g/dL (31.0-37.0); MCV 96.4 fL (80.0-100.0); Monocytes # (A) 0.6 k/uL (0-1.0); Monocytes % (A) 5 %; Neutrophils # (A) 8.3 k/uL (1.3-7.7); Neutrophils % (A) 78 %; Platelet Count 268 k/uL (150-450); RBC 4.84 m/uL (4.30-5.90); RDW 12.6 % (11.5-15.5); WBC 10.6 k/uL (3.8-10.6)
[2021-09-02 13:48] LABS: African American GFR (CKD) >90 (>60 ml/min/1.73 sqM); Alcohol <10 mg/dL; Anion Gap 9 mmol/L; Blood Urea Nitrogen 12 mg/dL (9-20); Calcium 9.1 mg/dL (8.4-10.2); Carbon Dioxide 21 mmol/L (22-30); Chloride 106 mmol/L (98-107); Glucose 104 mg/dL (74-99); Non-African American GFR(CKD) >90 (>60 ml/min/1.73 sqM); Sodium 136 mmol/L (137-145)
[2021-09-02 14:14] LABS: RBC Morphology Normal
--- NOTE | 2021-09-02 14:21 | CT ---
EXAMINATION TYPE: CT brain wo con DATE OF EXAM: 09/02/2021 COMPARISON: 11/19/2018 HISTORY: Altered mental status CT DLP: 1127.4 mGycm Automated exposure control for dose reduction was used. FINDINGS: There is no acute intracranial hemorrhage or midline shift identified. Ventricular and sulcal promine nce is redemonstrated. Some patchy bilateral basal ganglia calcifications are again seen. Low-attenua tion in the deep and periventricular white matter is redemonstrated. The calvarium is intact. The beau bes are intact and the visualized sinuses are clear. Right distal ICA is somewhat dense. Recommend CT A [place] to exclude thrombus within the right ICA IMPRESSION: 1. No acute hemorrhage. Slight asymmetry in the density of the right ICA. Recommend CTA [place] there is concern for acute thrombosis. 2. Degenerative and nonspecific white matter changes most typical remote ischemia.
[2021-09-02 15:00] LABS: Amphetamine Screen,Urine Detected (NotDetected); Barbiturate Screen,Urine Not Detected (NotDetected); Benzodiazepines Screen,Urine Not Detected (NotDetected); Cocaine Screen,Urine Detected (NotDetected); Methadone Screen, Urine Not Detected (NotDetected); Opiate Screen,Urine Not Detected (NotDetected); Oxycodone Screen, Urine Not Detected (NotDetected); Phencyclidine Screen,Urine Not Detected (NotDetected); Tricyclic Antidepressant,Urine Not Detected (NotDetected); Urn Cannabinoid Scrn Not Detected (NotDetected)
[2021-09-02] MEDS ORDERED: LORazepam 2 MG/ML INJ IM ONE (16:25)
[2021-09-02] MEDS ORDERED: HALOPERIDOL LACTATE 5 MG/ML 1 ML VIAL IM ONE (16:26)
[2021-09-02] MEDS ORDERED: MAGNESIUM HYDROXIDE 2,400 MG/10 ML CUP PO PRN (17:29)
[2021-09-02] MEDS ORDERED: LORazepam 1 MG TAB PO PRN (17:29)
[2021-09-02] MEDS ORDERED: HALOPERIDOL LACTATE 5 MG/ML 1 ML VIAL IM PRN (17:29)
[2021-09-02] MEDS ORDERED: ACETAMINOPHEN TAB 325 MG TAB PO PRN (17:29)
[2021-09-02] MEDS ORDERED: MAG HYDROX/AL HYDROX/SIMETH 30 ML CUP PO PRN (17:29)
[2021-09-02] MEDS ORDERED: LORazepam 2 MG/ML INJ IM PRN (17:33)
[2021-09-02] MEDS ORDERED: IBUPROFEN 800 MG TAB PO PRN (17:35)
[2021-09-02] MEDS ORDERED: haloperidoL 5 MG TAB PO PRN (17:35)
[2021-09-02] MEDS: METOPROLOL TARTRATE 25 MG TAB PO SCH (21:30)
[2021-09-03] MEDS: MULTIVITAMINS, THERA 1 EACH TAB PO SCH (08:33)
[2021-09-03] MEDS: NICOTINE 14MG/24HR PATCH TRANSDERM SCH (08:33)
[2021-09-03] MEDS: METOPROLOL TARTRATE 25 MG TAB PO SCH ×2 (08:33→21:26)
[2021-09-03] MEDS: LORATADINE 10 MG TAB PO SCH (08:33)
[2021-09-03 08:49] LABS: Basophils # (A) 0.1 k/uL (0-0.2); Basophils % (A) 1 %; Eosinophils # (A) 0.1 k/uL (0-0.7); Eosinophils % (A) 1 %; HCT 49.4 % (39.0-53.0); HGB 16.3 gm/dL (13.0-17.5); Lymphocytes # (A) 2.9 k/uL (1.0-4.8); Lymphocytes % (A) 32 %; MCH 32.5 pg (25.0-35.0); MCV 98.5 fL (80.0-100.0); Monocytes # (A) 0.4 k/uL (0-1.0); Monocytes % (A) 5 %; Neutrophils # (A) 5.4 k/uL (1.3-7.7); Neutrophils % (A) 59 %; Platelet Count 309 k/uL (150-450); RBC 5.02 m/uL (4.30-5.90); RDW 13.4 % (11.5-15.5); WBC 9.1 k/uL (3.8-10.6)
[2021-09-03 09:12] LABS: ALT 13 U/L (4-49); AST 29 U/L (17-59); African American GFR (CKD) 82 (>60 ml/min/1.73 sqM); Albumin 4.3 g/dL (3.5-5.0); Alkaline Phosphatase 79 U/L (38-126); Anion Gap 9 mmol/L; Blood Urea Nitrogen 14 mg/dL (9-20); Calcium 9.3 mg/dL (8.4-10.2); Carbon Dioxide 28 mmol/L (22-30); Chloride 100 mmol/L (98-107); Glucose 95 mg/dL (74-99); Non-African American GFR(CKD) 71 (>60 ml/min/1.73 sqM); Potassium 4.3 mmol/L (3.5-5.1); Sodium 137 mmol/L (137-145); Total Bilirubin 1.5 mg/dL (0.2-1.3)
--- NOTE | 2021-09-03 12:05 | P.HP ---
Psychiatric H&P - . History & Physical: Allergies Allergy/AdvReac Type Severity Reaction Status Date / Time No Known Allergies Allergy Verified 09/02/21 14:03 Vital Signs Temp 99.1 F 09/02/21 21:23 Pulse 119 H 09/03/21 08:35 Resp 16 09/02/21 18:02 BP 132/74 09/03/21 08:35 Pulse Ox 96 09/02/21 21:23 Intake & Output 09/02/21 09/03/21 09/03/21 18:59 06:59 18:59 Weight 58.967 kg Laboratory Last Values WBC 9.1 k/uL (3.8-10.6) 09/03/21 08:08 RBC 5.02 m/uL (4.30-5.90) 09/03/21 08:08 Hgb 16.3 gm/dL (13.0-17.5) 09/03/21 08:08 Hct 49.4 % (39.0-53.0) 09/03/21 08:08 MCV 98.5 fL (80.0-100.0) 09/03/21 08:08 MCH 32.5 pg (25.0-35.0) 09/03/21 08:08 MCHC 33.0 g/dL (31.0-37.0) 09/03/21 08:08 RDW 13.4 % (11.5-15.5) 09/03/21 08:08 Plt Count 309 k/uL (150-450) 09/03/21 08:08 MPV 7.0 09/03/21 08:08 Neutrophils % 59 % 09/03/21 08:08 Lymphocytes % 32 % 09/03/21 08:08 Monocytes % 5 % 09/03/21 08:08 Eosinophils % 1 % 09/03/21 08:08 Basophils % 1 % 09/03/21 08:08 Neutrophils # 5.4 k/uL (1.3-7.7) 09/03/21 08:08 Lymphocytes # 2.9 k/uL (1.0-4.8) 09/03/21 08:08 Monocytes # 0.4 k/uL (0-1.0) 09/03/21 08:08 Eosinophils # 0.1 k/uL (0-0.7) 09/03/21 08:08 Basophils # 0.1 k/uL (0-0.2) 09/03/21 08:08 Manual Slide Review Performed 09/02/21 12:58 RBC Morphology Normal 09/02/21 12:58 Sodium 137 mmol/L (137-145) 09/03/21 08:08 Potassium 4.3 mmol/L (3.5-5.1) 09/03/21 08:08 Chloride 100 mmol/L (98-107) 09/03/21 08:08 Carbon Dioxide 28 mmol/L (22-30) 09/03/21 08:08 Anion Gap 9 mmol/L 09/03/21 08:08 BUN 14 mg/dL (9-20) 09/03/21 08:08 Creatinine 1.13 mg/dL (0.66-1.25) 09/03/21 08:08 Est GFR (CKD-EPI)AfAm 82 (>60 ml/min/1.73 sqM) 09/03/21 08:08 Est GFR (CKD-EPI)NonAf 71 (>60 ml/min/1.73 sqM) 09/03/21 08:08 Glucose 95 mg/dL (74-99) 09/03/21 08:08 Calcium 9.3 mg/dL (8.4-10.2) 09/03/21 08:08 Total Bilirubin 1.5 mg/dL (0.2-1.3) H 09/03/21 08:08 AST 29 U/L (17-59) 09/03/21 08:08 ALT 13 U/L (4-49) 09/03/21 08:08 Alkaline Phosphatase 79 U/L (38-126) 09/03/21 08:08 Total Protein 8.0 g/dL (6.3-8.2) 09/03/21 08:08 Albumin 4.3 g/dL (3.5-5.0) 09/03/21 08:08 TSH 1.420 mIU/L (0.465-4.680) 09/03/21 08:08 Urine Opiates Screen Not Detected (NotDetected) 09/02/21 12:58 Ur Oxycodone Screen Not Detected (NotDetected) 09/02/21 12:58 Urine Methadone Screen Not Detected (NotDetected) 09/02/21 12:58 Ur Propoxyphene Screen Not Detected (NotDetected) 09/02/21 12:58 Ur Barbiturates Screen Not Detected (NotDetected) 09/02/21 12:58 U Tricyclic Antidepress Not Detected (NotDetected) 09/02/21 12:58 Ur Phencyclidine Scrn Not Detected (NotDetected) 09/02/21 12:58 Ur Amphetamines Screen Detected (NotDetected) H 09/02/21 12:58 U Methamphetamines Scrn Detected (NotDetected) H 09/02/21 12:58 U Benzodiazepines Scrn Not Detected (NotDetected) 09/02/21 12:58 Urine Cocaine Screen Detected (NotDetected) H 09/02/21 12:58 U Marijuana (THC) Screen Not Detected (NotDetected) 09/02/21 12:58 Serum Alcohol <10 mg/dL 09/02/21 12:58 Coronavirus (PCR) Not Detected (Not Detectd) 09/02/21 13:59 09/03/21 11:55 History of present illness: The patient denies all problems however he lives with his ex- and she reports that for the last 6 months he has been hallucinating that she came home and he was sobbing and talking to someone that was not there and also would see abnormal things that she could not see. The patient says that this is all untrue that he does talk to himself because he but that he does not talk to anyone else he does not hear voices and he does not see things. Substance use the patient has a history of methamphetamine abuse but denies any for some time he does admit to drinking alcohol on a daily basis 4-6 beers but he says he spread them out throughout the day so it's not a problem. Social history: The patient had difficulty telling a coherent story. However it seems that he is the third of 6 children born to his parents and after having 6 kids his dad who struggle with alcohol the cough and was not involved. Said his mother was stable but eventually developed [place]'s and young he says her side of the family was stable. He dropped out of school in the eighth grade but did go back and get a GED. Work he is on [employer] denied Denies legal problems Is living in a house with his ex- and helping with chores He says he has one daughter now with his ex- and she has 38 and has a child but he does not see them. Medical issues: The patient was evaluated in the emergency room he had a computed tomography scan which was unremarkable and the physical exam was basically normal and EKG which was unchanged from when he added on 318 Mental status exam patient had a flat affect poor hygiene but was cooperative he came to talk to me decreased eye contact and trouble concentrating and spoke very softly. He could name for the [facility] but could not get [place] even when I gave him the first letter. He couldn't subtract 7 from 100 but subtracting 7 from that he got 85. Abstraction is very limited first she could not think of anything that was similar between Snakes and He Said That Hossein Entails. His Generativity Is Low He Wants to Not Answer or Give Her Answers. I Gave Him 3 Things to Remember and He Said He Didn't Want to Try to Do That. When Asked to Spell World Backward He Would Not Even Try When Asked to Spell It Forward He Tried to Spell Forward When Asked Him to Spell It Normal He Said WORD. He Denies and Did Not Evidence Any Hallucinations or Express Any Delusions His Gait and Station Are Normal. He denies any suicidality or homicidality and was not agitated or aggressive in the session. Medication he denies taking any medications at home and does not want any at this time. Diagnosis: Polysubstance abuse disorder rule out schizophrenia Length: When necessary medications observe patient encourage him to attend groups. 09/03/21 12:03
--- NOTE | 2021-09-03 12:18 | P.PN ---
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 The patient's lab showed that he has been abusing cocaine and methamphetamine. He denied flatly he does have scratches on his arm they decide said he scratched himself but denied the abuse of methamphetamine. But that is most likely the cause of the hallucinations and he is definitely not motivated to deal with it. Objective - Vital Signs Vital signs: Vital Signs Temp 99.1 F 09/02/21 21:23 Pulse 119 H 09/03/21 08:35 Resp 16 09/02/21 18:02 BP 132/74 09/03/21 08:35 Pulse Ox 96 09/02/21 21:23 Intake & Output 09/02/21 09/03/21 09/03/21 18:59 06:59 18:59 Weight 58.967 kg - Labs CBC & Chem 7: 09/03/21 08:08 09/03/21 08:08 Labs: Abnormal Lab Results - Last 24 Hours (Table) 09/02/21 09/02/21 09/02/21 Range/Units 12:58 12:58 12:58 Neutrophils # 8.3 H (1.3-7.7) k/uL Sodium 136 L (137-145) mmol/L Carbon Dioxide 21 L (22-30) mmol/L Glucose 104 H (74-99) mg/dL Total Bilirubin (0.2-1.3) mg/dL Ur Amphetamines Screen Detected H (NotDetected) U Methamphetamines Scrn Detected H (NotDetected) Urine Cocaine Screen Detected H (NotDetected) 09/03/21 Range/Units 08:08 Neutrophils # (1.3-7.7) k/uL Sodium (137-145) mmol/L Carbon Dioxide (22-30) mmol/L Glucose (74-99) mg/dL Total Bilirubin 1.5 H (0.2-1.3) mg/dL Ur Amphetamines Screen (NotDetected) U Methamphetamines Scrn (NotDetected) Urine Cocaine Screen (NotDetected)
[2021-09-03 12:28] LABS: Chol/HDL Ratio 2.53 Ratio; LDL Cholesterol,Calculated 94.5 mg/dL (0.0-131.0)
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
--- NOTE | 2021-09-04 09:17 | P.PN ---
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 I removed. Subjective: So when are you going to let me out? Is nothing wrong with me I don't need medicine I will place to go I have friends I don't need to be here. He says he slept well and that seems to be the case denies any psychotic symptoms now or in the past. The patient's lab showed that he has been abusing cocaine and methamphetamine. He denied flatly he does have scratches on his arm they decide said he scratched himself but denied the abuse of methamphetamine. But that is most likely the cause of the hallucinations and he is definitely not motivated to deal with it. Mental status exam: Asked him his name is I could find his chart. I'd seen him once and he replies "You people are trying to mess with me you know my name" when I pointed out that I had seen every one on this unit for the first time yesterday and expecting me to know his name was not reasonable, he did back off some. He did not feel that he should have to write out a reasonable discharge plan. 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 Prognosis is extremely guarded. Plan no change Objective - Vital Signs Vital signs: Vital Signs Temp 98.1 F 09/04/21 06:30 Pulse 68 09/04/21 06:30 Resp 16 09/04/21 06:30 BP 128/78 09/04/21 06:30 Pulse Ox 96 09/02/21 21:23 Intake & Output 09/03/21 09/04/21 09/04/21 18:59 06:59 18:59 Weight 50.8 kg - Labs CBC & Chem 7: 09/03/21 08:08 09/03/21 08:08 Labs: Abnormal Lab Results - Last 24 Hours (Table) 09/03/21 Range/Units 08:08 Total Bilirubin 1.5 H (0.2-1.3) mg/dL HDL Cholesterol 70.30 H (40.00-60.00) mg/dL
[2021-09-04] MEDS: NICOTINE 14MG/24HR PATCH TRANSDERM SCH (09:21)
[2021-09-04] MEDS: LORATADINE 10 MG TAB PO SCH (09:22)
[2021-09-04] MEDS: MULTIVITAMINS, THERA 1 EACH TAB PO SCH (09:22)
[2021-09-04] MEDS: METOPROLOL TARTRATE 25 MG TAB PO SCH ×2 (09:22→21:09)
[2021-09-05 06:45] VITALS: PULSE 72; RESP 16; TEMP 97.8
[2021-09-05] MEDS: LORATADINE 10 MG TAB PO SCH (09:37)
[2021-09-05] MEDS: METOPROLOL TARTRATE 25 MG TAB PO SCH ×2 (09:37→20:45)
[2021-09-05] MEDS: MULTIVITAMINS, THERA 1 EACH TAB PO SCH (09:37)
[2021-09-05] MEDS: NICOTINE 14MG/24HR PATCH TRANSDERM SCH (09:37)
--- NOTE | 2021-09-05 11:46 | P.PN ---
Progress Note - Text Progress Note Date: 09/05/21 Interval History: Patient was seen doing a puzzle in the hallways today and was directable and a greeable to speak with investment underwriter in the office. Patient appeared to be fairly directable with investment underwriter during conversation was appropriate. He states that he is doing a bit better today in terms of his mood and anxiety. He spoke about why he came to the hospital "mainly because drugs and alcohol". He went on to describe his history of drinking and also his methamphetamine use. He minimized his meth use. He states that he knows he needs help and wants to go to AA meetings. We spoke a bit about rehab and states that he is still waiting on an intake date. He claimed to be more future oriented today. He claimed to be fairly logical. He claims that he will be speaking with his ex- to see if he will go back there. He claims that he is sleeping fairly at nighttime. At this time patient denies any suicidal or homical ideations, intent or plan. Patient denies any auditory, visual hallucinations and denies any paranoia or delusions. Patient denies any side effects from the medications and has been compliant with meds. Mental Status Exam: General Appearance: Patient appears to be thin, wearing glasses, stated age is alert, directable, and cooperative. Behavior: Patient is calmly seated without any agitated behavior. Speech: Patient's speech is fluent and nonpressured. Mood/Affect: Mood is improving mildly, affect is congruent and constricted. Suicidality/Homicidality: Patient denies having any suicidal or homicidal ideation intent or plan. Perceptions: Patient denies any visual hallucinations and denies any auditory hallucinations Though content/process: There is no evidence of any delusional thought content and thought process is linear and goal-directed. Vague at times. Memory and concentration: AOX3, grossly intact for the purposes of this session Judgment and insight: Improving mildly Assessment Psychosis likely secondary to methamphetamine use Methamphetamine use disorder Alcohol abuse Plan: -Patient continues to meet criteria for inpatient psychiatric admission for symptom stabilization and safety. Patient has not signed adult voluntary form and was placed in patient's chart. -Medications: Will continue to observe patient's behavior however at this time he does not require any psychotropic medications. -When necessary Ativan and Haldol for agitation/aggression. -NRT - not needed as patient does not smoke -SW on board for discharge planning. Encouraged the patient to participate in milieu. Patient has his deferral dates that with the buffing machine tender tomorrow. Awaiting [place] intake date for rehab. Likely discharge tomorrow after deferral.
[2021-09-05 12:57] VITALS: BMI 16.5
[2021-09-06 06:58] VITALS: BP 123/68
[2021-09-06] MEDS: MULTIVITAMINS, THERA 1 EACH TAB PO SCH (08:44)
[2021-09-06] MEDS: LORATADINE 10 MG TAB PO SCH (08:44)
[2021-09-06] MEDS: METOPROLOL TARTRATE 25 MG TAB PO SCH (08:44)
[2021-09-06] MEDS: NICOTINE 14MG/24HR PATCH TRANSDERM SCH (08:44)
--- NOTE | 2021-09-06 09:55 | P.DS ---
Providers Date of admission: 09/02/21 17:17 Expected date of discharge: 09/06/21 Attending physician: Dell Gonzales MD Consults: 09/03/21 16:03 Consult Physician Routine Consulting Provider: Kiran Garzon Consult Reason/Comments: [facility] medical care Do you want consulting provider notified?: Already Contacted Primary care physician: Agapito Burns - Discharge Diagnosis(es) (1) Unspecified psychosis Current Visit: Yes Status: Acute Priority: High (2) Methamphetamine abuse Current Visit: Yes Status: Acute Priority: High (3) Alcohol abuse Current Visit: Yes Status: Acute Priority: Medium Hospital Course: Admission HPI: Admission note was completed by Dr. Rodriguez "The patient denies all problems however he lives with his ex- and she reports that for the last 6 months he has been hallucinating that she came home and he was sobbing and talking to someone that was not there and also would see abnormal things that she could not see. The patient says that this is all untrue that he does talk to himself because he but that he does not talk to anyone else he does not hear voices and he does not see things. Sbstance use the patient has a history of methamphetamine abuse but denies any for some time he does admit to drinking alcohol on a daily basis 4-6 beers but he says he spread them out throughout the day so it's not a problem." Hospital course: Upon admission to the unit patient was admitted involuntarily on a petition and certificate and a second certificate was completed and faxed with the courts. Patient ended up signing a deferral with the terminal makeup operator and agreeing to treatment. Patient got along well with other patients on the unit and followed unit latoya col. Patient was compliant with the medications and denied any side effects throughout hospital course. Patient was not started on any psychotropic medications as it was most likely related to methamphetamine use and was monitored for alcohol withdrawal. Patient cleared psychiatrically without meds. Patient spoke of his stressors and engaged in therapy both group and individual. Patient was also seen by medical team for history and physical exam. Throughout the course of the hospitalization patient gradually improved with regards to mood, anxiety, sleep and returned back to their baseline level of functioning. On the day of discharge patient denied any suicidal or homicidal ideations intent or plan denied any auditory or visual hallucinations. Patient endorsed wanting to live for his health and family. The patient denied any access to guns or weapons. Patient denied any paranoia and did not endorse any delusions. Patient does have a significant history of substance abuse and was counseled on abstaining from all substances including alcohol and marijuana. Patient was offered however declined inpatient substance-abuse rehab. Patient elected to do outpatient substance use treatment program. Patient was also counseled on the medications and need for regular compliance and was encouraged to follow-up with their outpatient appointment for mental health and also for primary care. Prior to discharge a family meeting will be arranged by social service worker to answer any questions and ensure safety upon discharge. Patient will be returning back to his ex-girlfriend's house today after he signed a deferral with his terminal makeup operator. Mental status exam: General Appearance: Patient appears to be thin, wearing glasses, stated age is alert, pleasant, and cooperative. Patient is in no acute distress and has improved hygiene and grooming Behavior: Patient is calmly seated without any agitated behavior. Speech: Patient's speech is fluent and nonpressured. Mood/Affect: Patient reports their mood is "better", affect is congruent and euthymic. Suicidality/Homicidality: Patient denies having any suicidal or homicidal ideation intent or plan. Perceptions: Patient denies any auditory or visual hallucinations. Though content/process: There is no evidence of any delusional thought content and thought process is linear and goal-directed. more future oriented Memory and concentration: AOX3, grossly intact for the purposes of this session. Can spell "WORLD" backwards correctly. Judgment and insight: chronically poor, however has improved with guarded prognosis Impression: Psychosis unspecified, likely secondary to methamphetamine abuse Methamphetamine use disorder Alcohol abuse Plan: -Continue with discharge today as patient has improved and stabilized psychiatrically and is not currently an imminent threat to himself and/or others. Patient will remain at chronically elevated risk for harm to self and/or others due to his polysubstance abuse. -Continue medications: no psychotropic meds were started -Patient was counseled on the need for medication compliance and appropriate follow-up at mental health and also primary care for medical issues. Patient verbalized understanding and agreed. -Social work to arrange for and conduct family meeting to ensure safety upon discharge and answer any questions/concerns. Social work also to arrange for patients follow up appointments for psychiatric care along with follow up with primary care provider. -Patient counseled on abstaining from recreational drugs and marijuana and alcohol. Was informed/educated on the adverse effects on their physical and mental health. Patient verbally agreed and understood. Patient was offered substance abuse treatment however declined at this time. -Patient was instructed to return to the hospital or seek immediate medical care if their psychiatric or medical symptoms do worsen or reoccur. Allergies Allergy/AdvReac Type Severity Reaction Status Date / Time No Known Allergies Allergy Verified 09/02/21 14:03 Laboratory Results WBC 9.1 k/uL (3.8-10.6) 09/03/21 08:08 RBC 5.02 m/uL (4.30-5.90) 09/03/21 08:08 Hgb 16.3 gm/dL (13.0-17.5) 09/03/21 08:08 Hct 49.4 % (39.0-53.0) 09/03/21 08:08 MCV 98.5 fL (80.0-100.0) 09/03/21 08:08 MCH 32.5 pg (25.0-35.0) 09/03/21 08:08 MCHC 33.0 g/dL (31.0-37.0) 09/03/21 08:08 RDW 13.4 % (11.5-15.5) 09/03/21 08:08 Plt Count 309 k/uL (150-450) 09/03/21 08:08 MPV 7.0 09/03/21 08:08 Neutrophils % 59 % 09/03/21 08:08 Lymphocytes % 32 % 09/03/21 08:08 Monocytes % 5 % 09/03/21 08:08 Eosinophils % 1 % 09/03/21 08:08 Basophils % 1 % 09/03/21 08:08 Neutrophils # 5.4 k/uL (1.3-7.7) 09/03/21 08:08 Lymphocytes # 2.9 k/uL (1.0-4.8) 09/03/21 08:08 Monocytes # 0.4 k/uL (0-1.0) 09/03/21 08:08 Eosinophils # 0.1 k/uL (0-0.7) 09/03/21 08:08 Basophils # 0.1 k/uL (0-0.2) 09/03/21 08:08 Manual Slide Review Performed 09/02/21 12:58 RBC Morphology Normal 09/02/21 12:58 Sodium 137 mmol/L (137-145) 09/03/21 08:08 Potassium 4.3 mmol/L (3.5-5.1) 09/03/21 08:08 Chloride 100 mmol/L (98-107) 09/03/21 08:08 Carbon Dioxide 28 mmol/L (22-30) 09/03/21 08:08 Anion Gap 9 mmol/L 09/03/21 08:08 BUN 14 mg/dL (9-20) 09/03/21 08:08 Creatinine 1.13 mg/dL (0.66-1.25) 09/03/21 08:08 Est GFR (CKD-EPI)AfAm 82 (>60 ml/min/1.73 sqM) 09/03/21 08:08 Est GFR (CKD-EPI)NonAf 71 (>60 ml/min/1.73 sqM) 09/03/21 08:08 Glucose 95 mg/dL (74-99) 09/03/21 08:[address] Glu mg/dL 109 09/03/21 08:08 Hemoglobin A1c 5.4 % (0.0-6.0) 09/03/21 08:08 Calcium 9.3 mg/dL (8.4-10.2) 09/03/21 08:08 Total Bilirubin 1.5 mg/dL (0.2-1.3) H 09/03/21 08:08 AST 29 U/L (17-59) 09/03/21 08:08 ALT 13 U/L (4-49) 09/03/21 08:08 Alkaline Phosphatase 79 U/L (38-126) 09/03/21 08:08 Total Protein 8.0 g/dL (6.3-8.2) 09/03/21 08:08 Albumin 4.3 g/dL (3.5-5.0) 09/03/21 08:08 Triglycerides 66.00 mg/dL (0.00-149.00) 09/03/21 08:08 Cholesterol 178.00 mg/dL (0.00-200.00) 09/03/21 08:08 LDL Cholesterol, Calc 94.5 mg/dL (0.0-131.0) 09/03/21 08:08 VLDL Cholesterol, Calc 13.20 mg/dL (5.00-40.00) 09/03/21 08:08 HDL Cholesterol 70.30 mg/dL (40.00-60.00) H 09/03/21 08:08 Cholesterol/HDL Ratio 2.53 Ratio 09/03/21 08:08 TSH 1.420 mIU/L (0.465-4.680) 09/03/21 08:08 Urine Opiates Screen Not Detected (NotDetected) 09/02/21 12:58 Ur Oxycodone Screen Not Detected (NotDetected) 09/02/21 12:58 Urine Methadone Screen Not Detected (NotDetected) 09/02/21 12:58 Ur Propoxyphene Screen Not Detected (NotDetected) 09/02/21 12:58 Ur Barbiturates Screen Not Detected (NotDetected) 09/02/21 12:58 U Tricyclic Antidepress Not Detected (NotDetected) 09/02/21 12:58 Ur Phencyclidine Scrn Not Detected (NotDetected) 09/02/21 12:58 Ur Amphetamines Screen Detected (NotDetected) H 09/02/21 12:58 U Methamphetamines Scrn Detected (NotDetected) H 09/02/21 12:58 U Benzodiazepines Scrn Not Detected (NotDetected) 09/02/21 12:58 Urine Cocaine Screen Detected (NotDetected) H 09/02/21 12:58 U Marijuana (THC) Screen Not Detected (NotDetected) 09/02/21 12:58 Serum Alcohol <10 mg/dL 09/02/21 12:58 Coronavirus (PCR) Not Detected (Not Detectd) 09/02/21 13:59 Vital Signs Temp 97.8 F 09/06/21 06:57 Pulse 72 09/06/21 06:57 Resp 16 09/05/21 06:24 BP 123/68 09/06/21 06:57 Pulse Ox 98 09/06/21 06:57 Intake & Output 09/05/21 09/06/21 09/06/21 18:59 06:59 18:59 Weight 50.8 kg Patient Condition at Discharge: Stable Plan - Discharge Summary New Discharge Prescriptions: Continue Metoprolol Tartrate [Lopressor] 25 mg PO BID Ibuprofen [Motrin] 800 mg PO TID PRN PRN Reason: Pain Multivitamins, Thera [Multivitamin (formulary)] 1 tab PO DAILY Loratadine 10 mg PO DAILY Discharge Medication List Metoprolol Tartrate [Lopressor] 25 mg PO BID 11/19/18 [History] Ibuprofen [Motrin] 800 mg PO TID PRN 09/02/21 [History] Loratadine 10 mg PO DAILY 09/02/21 [History] Multivitamins, Thera [Multivitamin (formulary)] 1 tab PO DAILY 09/02/21 [History] Follow up Appointment(s)/Referral(s): [facility] [Outside] - 09/13/21 9:00 am (Intake w/ CM @ [place] Office 09/13 @ 9am) Katy Altman MD [Primary Care Provider] - 1-2 days Activity/Diet/Wound Care/Special Instructions: Activity and diet as tolerated. Avoid the use of street drugs and alcohol. Take all medications as prescribed. When you are in need of refills on your medications please contact your medical provider and/or outpatient psychiatrist to have this done. Please go to scheduled outpatient appointment for aftercare treatment. If symptoms return or become worse, call the crisis line at and/or go to the nearest emergency room for evaluation Discharge Disposition: HOME SELF-CARE
== END 2021-09-06 15:22 | disposition home or self-care (01) | DRG 897 ==
LOC: EC 11:43 → 3MHU 17:17
PROVIDERS: ADMIT Psychiatry & Neurology Psychiatry; ATTEND Psychiatry & Neurology Psychiatry
DX: F15.159 Other stimulant abuse with stimulant-induced psychotic disorder, unspecified (principal); E44.1 Mild protein-calorie malnutrition; Z68.1 Body mass index [BMI] 19.9 or less, adult; E78.5 Hyperlipidemia, unspecified; F10.10 Alcohol abuse, uncomplicated; F14.10 Cocaine abuse, uncomplicated; F32.9 Major depressive disorder, single episode, unspecified; F41.9 Anxiety disorder, unspecified; H54.8 Legal blindness, as defined in USA; I10 Essential (primary) hypertension; J44.9 Chronic obstructive pulmonary disease, unspecified; Z79.899 Other long term (current) drug therapy; Z85.118 Personal history of other malignant neoplasm of bronchus and lung; Z90.2 Acquired absence of lung [part of]; Z71.3 Dietary counseling and surveillance; Z90.89 Acquired absence of other organs; M19.90 Unspecified osteoarthritis, unspecified site; Z98.890 Other specified postprocedural states; Z82.0 Family history of epilepsy and other diseases of the nervous system; Z20.822 Contact with and (suspected) exposure to COVID-19; K76.9 Liver disease, unspecified
CPT/HCPCS: 36415; 70450; 80048; 80053; 80061; 80306; 80320; 82075; 83036; 84443; 85025; 87635; 93005; 96372; 99285